=== PATIENT | male | born 1950 | race Caucasian/White ===

== ENCOUNTER 2023-07-08 18:03 | Emergency (ER) | payer MEDICARE, SELFPAY ==
[2023-07-08 18:04] VITALS: BP 139/71; PULSE 62; RESP 18; TEMP 37.1; O2SAT 97; BMI 31.9
--- NOTE | 2023-07-08 18:06 | CTR_ITS ---
PROCEDURE INFORMATION: Exam: CT Head Without Contrast Exam date and time: 07/08/2023 7:17 PM Age: 72 years old Clinical indication: Weakness, extremity and weakness, facial; Right; Prior surgery; Surgery date: 6+ months; Surgery type: Craniotomy; Patient HX: C/O RT upper ext parasthesia and RT facial droop. History of RT sided hemorrhagic stroke. ; Additional info: R sided parasthesia, weakness, TIA, HX of left bleed TECHNIQUE: Imaging protocol: Computed tomography of the head without contrast. Radiation optimization: All CT scans at this facility use at least one of these dose optimization techniques: automated exposure control; mA and/or kV adjustment per patient size (includes targeted exams where dose is matched to clinical indication); or iterative reconstruction. REPORTING DATA: Count of CT and Cardiac NM exams in prior 12 months: This patient has received 0 known CTs and 0 known cardiac nuclear medicine studies in the 12 months prior to the current study. COMPARISON: No relevant prior studies available. RADIATION DOSE METRICS: Total DLP (mGy-cm): 1028.58 FINDINGS: Brain: No acute intracranial abnormality. Cerebral ventricles: No ventriculomegaly. Paranasal sinuses: Visualized sinuses are unremarkable. No fluid levels. Mastoid air cells: Visualized mastoid air cells are well aerated. Bones/joints: Left frontal craniotomy. Soft tissues: Unremarkable. CT/CT head wo con* [id number] IMPRESSION: 1. No acute intracranial abnormality. 2. Left frontal craniotomy.
--- NOTE | 2023-07-08 18:06 | XRR_ITS ---
PROCEDURE INFORMATION: Exam: XR Chest Exam date and time: 07/08/2023 7:04 PM Age: 72 years old Clinical indication: Other: Possible stroke; Additional info: Weakness, TIA TECHNIQUE: Imaging protocol: Radiologic exam of the chest. Views: 1 view. COMPARISON: No relevant prior studies available. FINDINGS: Lungs: Unremarkable. No consolidation. Pleural spaces: Unremarkable. No pleural effusion. No pneumothorax. Heart/Mediastinum: Unremarkable. No cardiomegaly. Bones/joints: Unremarkable. XR/XR chest 1V portable [id number] IMPRESSION: No acute findings.
[2023-07-08 18:10] VITALS: BP 139/71; PULSE 62; RESP 18; O2SAT 97
--- NOTE | 2023-07-08 18:14 | ECG_ITS ---
[facility] Test Date: 2023-07-08 Pat Name: Farshad Parra Department: Room: Gender: Male Scientific Recruiter: : [id number] Requested By: Jean Claude Simmons Order Number: [id number] Lucita MD: Kortney Pulliam M.D. Measurements Intervals [place] Rate: 56 P: 54 AK: 190 QRS: 52 QRSD: 96 T: 28 QT: 416 QTc: 405 Interpretive Statements SINUS BRADYCARDIA No previous ECG available for comparison Electronically Signed On 07-08-2023 21:17:46 POULTRY SCIENTIST by Kortney Pulliam M.D. [id number]
--- NOTE | 2023-07-08 18:22 | ED_ITS ---
HPI - Neuro Symptoms/Deficit 2 General: Chief Complaint: Neuro Symptoms/Deficit Stated Complaint: Stroke like Time Seen by Provider: 07/08/23 18:06 History of Present Illness: Patient presents to the ER with complaints of numbness and tingling of his right lip which lasted 3 to 5 seconds and a strange feeling in his right arm that involved him not being able to move it which lasted 3 to 5 minutes. He is all started and stopped approximately 2 hours ago. Patient does have a history of a hemorrhagic stroke on his left side. During his last stroke his symptoms were on his right side. Patient had brain surgery to remove the bleed in approximately April in [place]. Patient is all currently back to normal with no complaints at this time. Patient is not currently on any type of anticoagulation. Review of Systems 2 General: Reports: 10 or more systems reviewed and unremarkable except in HPI and below Physical Exam 2 Const: COMMON NORMALS: no acute distress, average body habitus, patient oriented x3, no limitations, healthy appearing, alert and well nourished HENMT: COMMON NORMALS: normocephalic, atraumatic, hearing grossly normal bilaterally, external ears normal, Normal external nose present, moist oral mucous membranes and oropharynx normal HEAD & SCALP: normocephalic and atraumatic NOSE: Normal external nose present EXTERNAL EAR: Yes external ears normal Eye: COMMON NORMALS: Equal, round and reactive pupils present, EOMs intact bilaterally, conjunctivae normal and no scleral icterus CONJUNCTIVA: Yes conjunctivae normal PUPIL: Yes Equal, round and reactive pupils present Neck/C-Spine: COMMON NORMALS: full ROM, no lymphadenopathy, supple, no meningeal signs, no JVD and Thyroid normal THYROID: Thyroid normal Chest: COMMONS NORMALS: normal inspection of the chest and normal palpation of entire chest wall Resp: COMMON NORMALS: normal respiratory effort, No retractions and No use of accessory muscles Cardio: COMMON NORMALS: no JVD, regular rate, regular rhythm, S1 normal heart sound present, S2 normal heart sound present, No gallops present (Cardio), No clicks present (Cardio), No murmurs present (Cardio) and No rub (Cardio) R ATE: regular rate RHYTHM: regular rhythm HEART SOUNDS: S1 normal heart sound present and S2 normal heart sound present GI: COMMON NORMALS: Normal to inspection, nondistended, normoactive bowel sounds present, Soft to palpation, non-tender, No hepatosplenomegaly present and no masses PALPATION: Yes Soft to palpation and Yes No hepatosplenomegaly present Neuro: COMMON NORMALS: patient oriented x3 SENSORIUM/ORIENTATION: Yes alert MENINGEAL SIGNS: Yes no meningeal signs OTHER: No focal localizing neurologic deficit noted. Strength symmetric in all extremities equal bilateral. Course 2 Vital Signs: Vital signs: Vital Signs Temperature 98.7 F 07/08/23 18:04 Pulse Rate 83 07/08/23 20:51 Respiratory Rate 18 07/08/23 18:10 Blood Pressure 124/81 07/08/23 20:51 Pulse Oximetry 96 07/08/23 20:51 Oxygen Delivery Me thod Room Air 07/08/23 18:10 MDM - Neuro Symptoms/Deficit Medical Decision Making Patient presented to the ER with TIA-like symptoms that had totally resolved by time he arrived to the ER. Patient was worked up with strokelike fashion with standard labs chest x-ray EKG and head CT. All of which were essentially benign. These findings was discussed with the patient and his family and how we cannot place him on anticoagulation because of his previous hemorrhagic stroke. It was instructed that the patient to follow-up with his neurologist for further evaluation and treatment. Differential Diagnosis Likely transient cerebral ischemia; Unlikely carpal tunnel syndrome, convulsions, delirium, subarachnoid hemorrhage, peripheral neuropathy, cerebrovascular accident or multiple sclerosis Medical Records I reviewed the patient's medical records. Lab Data I reviewed the patient's lab results. 07/08/23 18:20 07/08/23 18:20 Radiology Impressions Chest X-Ray 07/08/23 18:06 IMPRESSION: No acute findings. Head CT 07/08/23 18:06 IMPRESSION: 1. No acute intracranial abnormality. 2. Left frontal craniotomy. Laboratory Results WBC 4.78 10^3/uL (3.29-11.43) 07/08/23 18:20 RBC 4.03 10^6/uL (3.85-5.65) 07/08/23 18:20 Hgb 12.30 g/dL (11.27-16.99) 07/08/23 18:20 Hct 38.2 % (37-53) 07/08/23 18:20 MCV 94.8 fl (82-101) 07/08/23 18:20 MCH 30.5 pg (27-33) 07/08/23 18:20 MCHC 32.2 g/dL (30-55) 07/08/23 18:20 RDW 13.2 % (12.1-15.1) 07/08/23 18:20 Plt Count 210 10^3/cmm (157-399) 07/08/23 18:20 MPV 9.6 fL (7.4-10.4) 07/08/23 18:20 Neut % (Auto) 44.1 % 07/08/23 18:20 Lymph % (Auto) 40.6 % 07/08/23 18:20 [place] % (Auto) 12.8 % 07/08/23 18:20 Eos % (Auto) 1.9 % 07/08/23 18:20 Baso % (Auto) 0.4 % 07/08/23 18:20 Neut # (Auto) 2.11 10^3/uL (1.8-7.7) 07/08/23 18:20 Lymph # (Auto) 1.9 10^3/uL (0.8-4.8) 07/08/23 18:20 [place] # (Auto) 0.6 10^3/uL (0.2-0.9) 07/08/23 18:20 Eos # (Auto) 0.1 10^3/uL (0.0-0.8) 07/08/23 18:20 Baso # (Auto) 0.0 10^3/uL (0.0-0.1) 07/08/23 18:20 Nucleated RBC % (auto) 0 % 07/08/23 18:20 Nucleated RBCs # 0.0 /100WBC 07/08/23 18:20 PT 13.80 SECONDS (12.1-14.9) 07/08/23 18:20 INR 1.03 (0.8-1.2) 07/08/23 18:20 Sodium 140 mmol/L (136-145) 07/08/23 18:20 Potassium 3.8 mmol/L (3.5-5.1) 07/08/23 18:20 Chloride 105 mmol/L (98-107) 07/08/23 18:20 Carbon Dioxide 26 mmol/L (22-29) 07/08/23 18:20 Anion Gap 12.8 (5-19) 07/08/23 18:20 BUN 15 mg/dL (8-23) 07/08/23 18:20 Creatinine 0.9 mg/dL (0.7-1.2) 07/08/23 18:20 GFR Calculation Not Reportable 07/08/23 18:20 Glucose 106 mg/dL (65-115) 07/08/23 18:20 Calculated Osmolality 291 mOsm/kg (285-295) 07/08/23 18:20 Calcium 8.8 mg/dL (8.5-10.5) 07/08/23 18:20 Magnesium 1.9 mg/dL (1.7-2.3) 07/08/23 18:20 Total Bilirubin 1.0 mg/dL (0.15-1.2) 07/08/23 18:20 AST 15 U/L (0-40) 07/08/23 18:20 ALT 15 U/L (0-41) 07/08/23 18:20 Alkaline Phosphatase 69 U/L (40-130) 07/08/23 18:20 C-Reactive Protein 3.0 mg/L (0.0-4.9) 07/08/23 18:20 Total Protein 6.1 g/dL (6.6-8.7) L 07/08/23 18:20 Albumin 4.0 g/dL (3.5-5.2) 07/08/23 18:20 Globulin 2.1 g/dL (1.3-4.6) 07/08/23 18:20 TSH 1.15 uIU/mL (0.27-4.20) 07/08/23 18:20 All radiology interpretation(s) finalized by discharge EKG Data EKG 1: I personally reviewed and interpreted this EKG as follows: EKG interpretation date: 07/08/23 EKG interpretation time: 18:14 Prior EKG tracings: not available for review Interpretation: EKG shows ventricular rate 56 bpm, IN interval 190, QRS duration 96, QTc of 409, sinus bradycardia, no ST-T wave changes Discharge Plan Discharge Patient Disposition: Home Clinical Impression: Brain TIA Condition: Stable Discharge Orders: Discharge ED (Routine); Ordered 07/08/23 Ordered By: Jean Claude Simmons Referrals: Mariposa Parra NP [Primary Care Provider] - 1 week Patient Instructions: TIA Activity Restrictions/Additional Instructions: Please continue all your current medications as prescribed. Please follow-up with your neurologist for further evaluation and treatment of your recurrent TIAs. Please follow-up with your family practitioner in the next 7 to 10 days for further evaluation and treatment also. If your symptoms return please return to the ER. Coding Level of Care Code ED Physician/Ophthalmologist for Ronni Gonsalez
[2023-07-08 18:25] LABS: Basophils % 0.4 %; Eosinophils # 0.1 10^3/uL (0.0-0.8); Eosinophils % 1.9 %; Hematocrit 38.2 % (37-53); Lymphocytes # 1.9 10^3/uL (0.8-4.8); Lymphocytes % 40.6 %; Mean Corpuscular HGB Conc 32.2 g/dL (30-55); Mean Corpuscular Hemoglobin 30.5 pg (27-33); Mean Corpuscular Volume 94.8 fl (82-101); Mean Platelet Volume 9.6 fL (7.4-10.4); Monocytes # 0.6 10^3/uL (0.2-0.9); Monocytes % 12.8 %; Neutrophils # 2.11 10^3/uL (1.8-7.7); Neutrophils % 44.1 %; Nucleated Red Blood Cells % 0 %; Platelet Count 210 10^3/cmm (157-399); Red Blood Count 4.03 10^6/uL (3.85-5.65); Red Cell Distribution Width 13.2 % (12.1-15.1); White Blood Count 4.78 10^3/uL (3.29-11.43)
[2023-07-08 18:45] LABS: INR 1.03 (0.8-1.2)
[2023-07-08 19:35] LABS: Alanine Aminotransferase 15 U/L (0-41); Alkaline Phosphatase 69 U/L (40-130); Anion Gap 12.8 (5-19); Aspartate Amino Transferase 15 U/L (0-40); Blood Urea Nitrogen 15 mg/dL (8-23); Calcium 8.8 mg/dL (8.5-10.5); Carbon Dioxide 26 mmol/L (22-29); Chloride 105 mmol/L (98-107); Globulin 2.1 g/dL (1.3-4.6); Glucose 106 mg/dL (65-115); Magnesium 1.9 mg/dL (1.7-2.3); Osmolality Calculated 291 mOsm/kg (285-295); Potassium 3.8 mmol/L (3.5-5.1); Sodium 140 mmol/L (136-145); Total Protein 6.1 g/dL (6.6-8.7)
[2023-07-08 19:42] LABS: Thyroid Stimulating Hormone 1.15 uIU/mL (0.27-4.20)
[2023-07-08 20:51] VITALS: BP 124/81; PULSE 83; O2SAT 96
== END 2023-07-08 20:56 | disposition home or self-care (01) ==
PROVIDERS: Emergency Provider Emergency Medicine; PCP Nurse Practitioner Family
DX: G45.9 Transient cerebral ischemic attack, unspecified (principal)
CPT/HCPCS: 36415; 70450; 71045; 80053; 83735; 84443; 85025; 85610; 86140; 93005; 99285

== ENCOUNTER 2025-07-19 13:44 | Observation (INO) | payer MEDICARE, SELFPAY ==
[2025-07-19] VITALS (10 sets, daily range): BP systolic 152–185; BP diastolic 67–94; PULSE 65–83; RESP 16–22; TEMP 36.5–36.8; O2SAT 92–98
--- OUTSIDE RECORDS SUMMARY | 2025-07-19 13:47 | XMS_ITS | Clinical Summary ---
Author Organization [facility] Address [address] [place] [address] Care Team Providers Care Dietetic Assistant Name Role Phone Mercedes Solis MD Primary Care Provider Allergies Active Allergy Reactions Criticality Noted Date Comments Penicillins Anaphylaxis High 02/07/2010 Medications cyanocobalamin (VITAMIN B-12) 500 mcg tablet Take 500 mcg by mouth daily. Active nitroglycerin (NITROSTAT) 0.4 mg Tablet, Sublingual Place 1 Tablet (0.4 mg) under tongue every 5 minutes as needed for Chest Pain (do not exceed 3 doses,notify physician if chest pain not relieved, hold if systolic BP less than or equal to 90 mmHg). 25 Tablet 3 8 Active promethazine-dext romethorphan (PHENERGAN-DM) 6.25-15 mg/5 mL syrup Take 5 mL by mouth every 6 hours as needed for Cough. 120 mL 1 0 Active baclofen (LIORESAL) 10 mg tablet Take 1 Tablet (10 mg) by mouth 3 times daily as needed for Pain (neck). 30 Tablet 0 Active ascorbic acid, vitamin C, (VITAMIN C) 1,000 mg Tablet Take 1,000 mg by mouth daily. Active aspirin (ECOTRIN EC) 81 mg Tablet, Delayed Release (E.C.)Indications :History of right coronary artery stent placement Take 1 Tablet (81 mg) by mouth daily. 90 Tablet 3 0 Active fluticasone propionate (FLONASE) 50 mcg/spray [place], Suspension nasal inhaler Administer 2 Sprays in each nostril daily. 16 Gram 3 1 Active atorvastatin (LIPITOR) 80 mg tabletIndications :Atherosclerosis of [place] coronary artery of [place] heart without angina pectoris Take 1 Tablet (80 mg) by mouth daily at bedtime. 90 Tablet 1 Active carvediloL (COREG) 6.25 mg tabletIndications :Atherosclerosis of [place] coronary artery of [place] heart without angina pectoris TAKE 1 TABLET EVERY 12 HOURS 180 Tablet 1 1 Active lisinopriL (PRINIVIL) 5 mg tabletIndications :Benign hypertension TAKE 1 TABLET DAILY 30 Tablet 1 Active omeprazole (PriLOSEC) 40 mg Capsule, Delayed Release(E.C.)Renetta cations:Gastroeso phageal reflux disease TAKE 1 CAPSULE DAILY 30 Capsule 1 Active Active Problems Problem Noted Date Diagnosed Date Benign hypertension 03/15/2018 Mixed hyperlipidemia 03/17/2016 Atherosclerosis of [place] co ronary artery of [place] heart without angina pectoris 12/04/2015 History of right coronary artery stent placement 12/04/2015 Overview (12/04/2015): overlapping KRISTINE to RCA 11/11/15 Dizziness 11/08/2015 Fatigue 11/08/2015 UNGER (dyspnea on exertion) 11/08/2015 Sweating 11/08/2015 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 Personal history of colonic polyps 09/04/2010 Family history of colon cancer 09/04/2010 Immunizations Immunization Administration Dates Next Due (PNEUMOVAX 23)(50 YRS UP) PN EUMOCOCCAL POLYSACCHARIDE (PPV23) 0.5 ML, IM 10/27/2017 (TDVAX)(7 YRS UP) TETANUS AN D DIPHTHERIA TOXOIDS, ADSORBED (2 LF OF TETANUS TOXOID AND 2 LF OF DIPHTHERIA TOXOID), 0.5ML (PF), IM 12/11/2005 PREVNAR (PCV13) pneumococcal 13-valent conjugate Vaccine 03/17/2016 Skin Test TB 10/18/2019 Zoster Vaccine Live SQ 03/17/2016 Family History Medical History Relation Name Comments Colon Cancer Father Cancer Maternal Uncle Lung Cancer Paternal Uncle Relation Name Status Comments Father Maternal Uncle Paternal Uncle Social History Tobacco Use Types Packs/Day Years Used Date Smoking Tobacco: Former Cigarettes 0 Q uit: 07/26/1994 Smokeless Tobacco: Never Tobacco Cessation:Counseling Given: No Alcohol Use Standard Drinks/Week Comments No 0 (1 standard drink = 0.6 oz pur e alcohol) Sex and Gender Information Value Date Recorded Sex Assigned at Not on file 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 Gender Identity Not on file Sexual Orientation Not on file Last Filed Vital Signs Vital Sign Reading Time Taken Comments Blood Pressure 140/80 08/29/2020 9:36 AM DATA QUALITY CONSULTANT Pulse 65 08/29/2020 9:27 AM DATA QUALITY CONSULTANT Temperature 36.5 C (97.7 F) 08/29/2020 9:27 AM DATA QUALITY CONSULTANT Respiratory Rate 16 08/29/2020 9:27 AM DATA QUALITY CONSULTANT Oxygen Saturation 94% 08/29/2020 9:27 AM DATA QUALITY CONSULTANT Inhaled Oxygen Concentration - - Weight 99.5 kg (219 lb 6.4 oz) 08/29/2020 9:27 A M DATA QUALITY CONSULTANT Height 172.7 cm (5' 8 ) 08/29/2020 9:27 AM DATA QUALITY CONSULTANT Body Mass Index 33.36 08/29/2020 9:27 AM DATA QUALITY CONSULTANT Plan of Treatment Health Maintenance Due Date Last Done Comments COLORECTAL SCREENING 1968 Traditional Medicare (ACO) A nnual Wellness Visit 1969 DTAP/TDAP/TD VACCINES (1 - Tdap) 12/12/2005 12/12/19 06 ZOSTER VACCINE (2 of 3) 05/12/2016 03/17/2016 RSV VACCINE (60+ or ) (1 - 1-dose 75+ series) 2023 INFLUENZA VACCINE (#1) 2025 08/29/2020, 2019 PNEUMOCOCCAL VACCINE 50+ YEARS Completed 10/27/2017 , 03/17/2016 Medical Devices Implanted Type Area Bowling Teacher Device Identifier Shelf Expiration Date Model / Serial / Lot Xience 3.5x38-11/11/2015 Implanted:2015 (Quantity not on file) Stent Xience 3.5x8-11/11/2015 Implanted:2015 (Quantity not on file) Stent Xience 3.5x12-11/11/2015 Implanted:2015 (Quantity not on file) Stent Insurance MEDICARE PART A AND B [employer] Advance Directives For more information, please contact: [phone] * Full Code (Latest Code Status on File) Date Activated Date Inactivated Comments 11/11/2015 11:03 AM 11/11/2015 10:24 PM * Full Code Date Activated Date Inactivated Comments 11/08/2015 8:50 PM 11/11/2015 11:03 AM Care Teams Dietetic Assistant Relationship Specialty Start Date End Date Mercedes Solis MD [address] [phone] PCP - General Family Practice 06/08/16
--- OUTSIDE RECORDS SUMMARY | 2025-07-19 13:47 | XMS_ITS | Encounter Summary ---
Author Organization [facility] Address [address] [place] [address] Care Team Providers Care Developer Advisor Name Role Phone Mercedes Solis MD Primary Care Provider [phone] Encounter Details Date Type Department Care Team (Latest Contact Info) Description 06/28/2006 Outpatient Historical [facility] Medicine- [address] [phone] Nagi Rajan, [place] NO ADDRESS ON FILE Acute Bronchitis (Primary Dx); Allergic Rhinitis, Cause Unspecified Social History Tobacco Use Types Packs/Day Years Used Date Smoking Tobacco: Never Assessed Sex and Gender Information Value Date Recorded Sex Assigned at Not on file 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
--- OUTSIDE RECORDS SUMMARY | 2025-07-19 13:47 | XMS_ITS | Continuity of Care Document ---
Author Organization [facility] Address [address] [place] [address] Assessment Encounter Date Assessment Date Assessment LastModified by Organization Details LastModified Time 07/17/2025 07/17/2025 J02.9: Acute pharyngitis, unspecified Z88.0: Allergy status to penicillin 1. Acute pharyngitis J02.9: Acute pharyngitis, unspecified Patient presents with acute sore throat symptoms that have not responded adequately to azithromycin. Due to penicillin allergy, alternative antibiotic therapy is indicated. - Clindamycin prescribed given penicillin allergy - Steroid injection administered to reduce inflammation and dry secretions - Patient counseled regarding potential diarrhea as side effect of clindamycin and advised to contact office if this occurs 2. Penicillin allergy Z88.0: Allergy status to penicillin Documented penicillin allergy affects antibiotic selection for current infection. - Avoided ceftriaxone due to potential cross-reactivit y - Selected clindamycin as appropriate alternative antibiotic [id number] Not available 07/17/2025 11:53:22 Plan of Treatment Reminders Order Date Submit Date Provider Last Modified By Organization Details Last Modified Time Details Appointments None recorded. Lab influenza virus A + B + SARS-CoV-2 (COVID19) Ag panel, rapid IA, upper respiratory specimen 2024 025 [facility] [address] [place], [address], 5 12:04:46 rapid strep group A, throat 2024 025 [facility] [address] [place], [address], 11:42:27 Referral None recorded. Procedures None recorded. Surgeries None recorded. Imaging None recorded. Medication Orders clindamycin HCl 300 mg capsule 2024 [place], [address] [place], [address], 12:20:17 Depo-Medrol 40 mg/mL suspension for injection [address] [facility] [address] [facility], [facility] [place], [address], 11:58:57 dexamethaso ne sodium phosphate 4 mg/mL injection solution [address], [facility] [place], [address], 11:59:50 Patient TargetsNo targets recorded. Patient InstructionsNo instructions recorded. Reason for Referral None Reported. Results Created Date Observation Date Name Description Value Unit Range Abnormal Flag Note LastModifiedBy Organization Detail LastModifiedTime 07/17/2007/17/2025 influ nickie virus A + B + SARS- CoV-2 (COVI D19) Ag panel , rapid IA, upper respi rator y speci men flu A N Not Available [facility] [address] [place], [address], 07/17/2025 11:35:52 07/17/20 25 07/17/2025 influ nickie virus A + B + SARS- CoV-2 (COVI D19) Ag panel , rapid IA, upper respi rator y speci men flu B N Not Available [facility] [address] [place], [address], 07/17/2025 11:35:52 07/17/20 25 07/17/2025 influ nickie virus A + B + SARS- CoV-2 (COVI D19) Ag panel , rapid IA, upper respi rator y speci men covid N Not Available [facility] [address] [place], [address], 07/17/2025 11:35:52 07/17/20 25 07/17/2025 rapid strep group A, throa t Strep positi ve Not Available [facility] [address] [place], [address], 07/17/2025 11:35:59 Result Notes None recorded. Problems Name Problem SNOMED Code Status Onset Date Resolution Date Notes Provider Name and Address Organization Details Recorded Time Coronary arterioscle rosis 77505155 Active 2022 Mariposa Parra NP [address], [address], [facility] 3 14:58:33 Hypertensiv e disorder 79956603 Active 2022 Mariposa Parra NP [address], [address], [facility] 3 14:58:48 Chronic obstructive pulmonary disease 97393229 Active 2022 Mariposa Parra NP [address], [address], [facility] 3 15:00:21 Vitamin D deficiency 40435738 Active 2022 [facility] 3 12:53:19 Focal onset aware epileptic seizure 2752284029224 00 Active 2024 Mariposa Parra NP [address], [address], [facility] 5 15:16:53 History of atrial fibrillatio n 889830025 Active 2024 Mariposa Parra NP [address], [address], [facility] 5 15:17:26 Mixed hyperlipide linda 255556814 Active 2024 Mariposa Parra, WAREHOUSEMAN [address], [address], [facility] 5 15:17:51 Problem Notes None recorded. Procedures Surgical History Date Name Laterality Status Provider Name and Address Organization Details Recorded Time insertion of arterial stent completed Cheryl [facility] 06/01/2023 12:20:55 procedure on brain completed Cheryl [facility] 06/01/2023 12:21:34 Imaging Results None recorded. Procedure Notes None recorded. Medical Equipment None Reported. Allergies Allergen ID Allergen Name Allergen Category Reaction Reaction Severity Criticality Documentation Date Start Date Code Code System Note Provider Name and Address Organization Details Recorded Time 82539 Product containin g penicilli n (product) medicatio n Not available Not available Not available 11/12/2022 08869 8001 SNOMED Libertad Banks [facility] 3 14:17:43 Medications Name Sig Start Date Stop Date Status Note LastModified by Organization Details LastModified Time atorvastati n 40 mg tablet TAKE 1 TABLET DAILY AT BEDTIME 2024 active Not Available Not Available Not Avai lable atorvastati n 80 mg tablet TAKE 1 TABLET DAILY active Not Available Not Available No t Available ascorbic acid (vitamin C) 1,000 mg tablet Take 1000 mg every day by oral route in the morning. active Not Available Not Available No t Available acetaminoph en 325 mg tablet Take 2 tablets as needed by oral route. active Not Available Not Available No t Available carvedilol 6.25 mg tablet Take 1 tablet twice a day by oral route for 90 days. 2024 active Not Available Not Available Not Avai lable doxycycline hyclate 100 mg capsule Take 1 capsule twice a day by oral route for 14 days. 11/03 completed Not Available Not Available Not Available carvedilol 12.5 mg tablet TAKE 1 TABLET EVERY 12 HOURS. active Not Available Not Available No t Available Depo-Medrol 40 mg/mL suspension for injection Take 40 mg by injection route. 2024 active Not Available Not Available Not Avai lable clindamycin HCl 300 mg capsule Take 1 capsule 3 times a day by oral route for 10 days. 2024 active Not Available Not Available Not Avai lable Vitamin C 500 mg tablet Take 1 tablet every day by oral route. 06/01 completed Not Available Not Available Not Available Claritin 10 mg tablet Take 1 tablet every day by oral route. 2024 active Not Available Not Available Not Avai lable lisinopril 20 mg tablet Take 1 tablet every day by oral route. 2024 active Not Available Not Available Not Avai lable prednisone 20 mg tablet Take 1 tablet every day by oral route for 5 days. 02/22 completed Not Available Not Available Not Available clopidogrel 75 mg tablet Take 1 tablet every day by oral route. 05/31 completed Not Available Not Available Not Available amlodipine 5 mg tablet TAKE 1 TABLET EVERY MORNING 2024 active Not Available Not Available Not Avai lable omeprazole 40 mg capsule,del ayed release Take 1 capsule(s ) every day by oral route. 2024 active Not Available Not Available Not Avai lable Depo-Medrol 80 mg/mL suspension for injection Take 80 mg by injection route. 03/08 completed Not Available Not Available Not Available tamsulosin 0.4 mg capsule TAKE 1 CAPSULE DAILY 2024 active Not Available Not Available Not Avai lable linezolid 600 mg tablet Take 1 tablet every 12 hours by oral route. 06/01 completed Not Available Not Available Not Available Cipro 500 mg tablet Take 1 tablet every 12 hours by oral route for 7 days. 08/17 completed Not Available Not Available Not Available lisinopril 10 mg tablet TAKE 1 TABLET DAILY. active Not Available Not Available No t Available nitroglycer in 0.[address] 1 TABLET (0.4 MG) BY SUBLINGUA L ROUTE AT 1ST SIGN OF ATTACK; MAY REPEAT EVERY 5 MINUTES UP TO 3 TABS; IF NO RELIEF SEEK MEDICAL HELP active Not Available Not Available No t Available mometasone 50 mcg/actuati on nasal spray Axtell 2 sprays every day by intranasa l route. 2024 active Not Available Not Available Not Avai lable lisinopril 5 mg tablet Take 1 tablet every day by oral route. 05/31 completed Not Available Not Available Not Available dexamethaso ne sodium phosphate 4 mg/mL injection solution Inject 4 mg by intramusc ular route. 2024 active Not Available Not Available Not Avai lable levofloxaci n 500 mg tablet Take 1 tablet every 24 hours by oral route for 10 days. 02/22 completed Not Available Not Available Not Available Benadryl 25 mg capsule Take 2 capsules by oral route. 2024 active Not Available Not Available Not Avai lable Adult Low Dose Aspirin 81 mg tablet,mynor yed release Take 1 tablet every day by oral route in the morning. 06/01 completed HOLD Not Available Not Available Not Available Saccharomyc es boulardii 250 mg capsule Take 2 capsules twice a day by oral route for 7 days. 11/03 completed Not Available Not Available Not Available calcium 250 mg (as carbonate)- vitamin D3 3.125 mcg (125 unit) tablet Take 1 tablet every day by oral route. 06/01 completed Not Available Not Available Not Available levetiracet am 1,000 mg tablet Take 1 tablet twice a day by oral route for 30 days. 2023 active Not Available Not Available Not Avai lable lacosamide 150 mg tablet Take 1 tablet twice a day by oral route. 11/03 completed Not Available Not Available Not Available B12 Take 500 mcg daily 08/17 completed Not Available Not Available Not Available EpiPen 2-Ovidio 0.3 mg/0.3 mL injection, auto-inject or as directed 2024 active Not Available Not Available Not Avai lable Flonase Allergy Relief 50 mcg/actuati on nasal spray,suspe nsion 2 sprays each nostril morning and evening. 03/12 completed Not Available Not Available Not Available Stiolto Respimat 2.5 mcg-2.5 mcg/actuati on solution for inhalation Inhale 2 puffs every day by inhalatio n route. 08/03 completed Not Available Not Available Not Available Vitals Date Recorded Body height Body mass index (BMI) Body weight Body temperature Heart rate Oxygen saturation Respiratory rate Systolic And Diastolic Provider Name and Address Organization Details Last Updated DateTime 5 165.1 cm 37.6 kg/m2 484854. 28 g 98.6 [degF] 96 /min 97 % 18 /min 142/80 mm[Hg] Catherine Gar [facility] 5 11:35:09 Social History Question Answer Notes LastModified by Organizat ion Details LastModified Time Tobacco Smoking Status Former Smoker Libertad Banks [facility] 11/12/2022 14:20:42 Do You Have An Advance Directive? No Information n ot available 11/12/2022 Do You Wear A Helmet When Biking? No Information not available 11/12/2022 Are You Blind Or Do You Have Difficulty Seeing? No Information n ot available 11/12/2022 Is Blood Transfusion Acceptable In An Emergency? Yes Information not available 11/12/2022 What Is Your Level Of Caffeine Consumption? Moderate Information not available 11/12/2022 In The 14 Days Before Symptom Onset, Have You Had Close Contact With A Laboratory-confirm ed COVID-19 While That Case Was Ill? No Information n ot available 11/12/2022 In The 14 Days Before Symptom Onset, Have You Had Close Contact With A Person Who Is Under Investigation For COVID-19 While That Person Was Ill? No Information not available 11/12/2022 Have You Been To An Area Known To Be High Risk For COVID-19? No Information not available 11/12/2022 Are You Deaf Or Do You Have Serious Difficulty Hearing? Yes Information not available 11/12/2022 What Type Of Diet Are You Following? REGULAR Information n ot available 11/12/2022 Have You Processed Blood Or Body Fluids From An Ebola Virus Disease Patient Without Appropriate PPE? No Information not available 11/12/2022 What Is The Highest Grade Or Level Of School You Have Completed Or The Highest Degree You Have Received? [id number] Information not available 11/12/2022 Have You Ever Been Tested For Hepatitis C No Information not available 06/01/2023 Have You Had A Blood Transfusion Before 1991? No Information not available 06/01/2023 Have You Had Laser Engraver Dialysis? No Information not available 11/12/2022 Have You Ever Used Injectable Drugs, Even Once? No Information not available 11/12/2022 Do You Have Tattoos Or Body Piercings? No Information not available 11/12/2022 Have You Had Close Contact With An Individual With Hepatitis C? No Information not available 06/01/2023 Have You Ever Had Sex For Drugs Or Money? No Information not available 11/12/2022 Have You Ever Had Unprotected Sex? Yes Information not available 06/01/2023 Have You Been Incarcerated For Longer Than 6 Months? No Information not available 11/12/2022 Have You Tested Positive For HIV? No Information no t available 11/12/2022 Do You Have A History Of Fist Fighting Or Combat Experience? No Information not available 11/12/2022 What Number (0-10) Best Describes How, During The Past Week, Has Interfered With Your General Activity? 0 Information not available 11/12/2022 What Number (0-10) Best Describes How, During The Past Week, Pain Has Interfered With Your Enjoyment In The Past Week 0 Information not available 11/12/2022 What Number (0-10) Best Describes Your Pain On Average In The Past Week 0 Information not available 11/12/2022 Total PEG Score 0 Informati on not available 11/12/2022 What Was The Date Of Your Most Recent Tobacco Screening? 07/17/2025 [email or web address] Information not available 07/17/2025 How Many Children Do You Have? 2 Information not available 11/12/2022 Do You Use Protection During Sex? No Information not available 11/12/2022 What Is Your Relationship Status? Information not available 11/12/2022 Do You Use Your Seat Belt Or Car Seat Routinely? No Information not available 11/12/2022 Are You Sexually Active? Yes Information not available 11/12/2022 Do You Have Difficulty Walking Or Climbing Stairs? No Information not available 11/12/2022 Sex: Male Functional Status Question Answer Note LastModified by Organizat ion Details LastModified Time Do you use any illicit or recreational drugs? No Information not available 11/12/2022 Do you or have you ever used any other forms of tobacco or nicotine? No Information not available 11/12/2022 What is your level of alcohol consumption? None Information not available 11/12/2022 Are you currently employed? No Information not available 11/12/2022 Do you have transportation difficulties? No Information not available 11/12/2022 Are you able to walk independently without assistance or assistive devices? YESWOREST Information not available 11/12/2022 Do you have difficulty doing errands alone? No Information not available 11/12/2022 Are you able to care for yourself independently? Yes Information not available 11/12/2022 Do you have difficulty dressing, bathing, grooming, or toileting? No Information not available 11/12/2022 Mental Status Question Answer Note LastModified by Organizat ion Details LastModified Time Do you feel stressed (tense, restless, nervous, or anxious, or unable to sleep at night)? GN0890-4 Information not available 11/12/2022 Do you have difficulty concentrating, remembering or making decisions? Yes Information no t available 11/12/2022 Family History Nothing Reported Notes:Father had unspec [facility] er Medical History No medical history recorded. Immunizations Vaccine Type Date Status Note Provider Nam e and Address Organization Details Recorded Time pneumococcal polysaccharide PPV23 8 completed MALU Diaz - [facility] 11/12/2022 14:17:29 Pneumococcal conjugate PCV 13 6 completed Libertad Banks [facility] 11/12/2022 14:17:29 zoster live 6 completed Libertad Banks [facility] 11/12/2022 14:17:29 Tdap 3 completed Mariposa Parra, WAREHOUSEMAN [address], [address], [facility] 02/22/2023 15:41:50 Past Encounters Encounter ID Performer Location Encounter Start Date Encounter Closed Date Diagnosis/Indication Diagnosis SNOMED-CT Code Diagnosis ICD10 Code Diagnosis IMO Codes Diagnosis Note [id number] RADHA CLEARY DO [facility] [address] [place] [address] 07/17/2025 11:24:44 07/17/2025 16:16:37 Acute cough 0667415418 66438860 R05.3 0251066299 Streptococ travis sore throat 38527013 J02.0 7212458 Health Concerns Section Related Observation LastModified by Organization Detai ls LastModified Time None Recorded Concern Status LastModified by Organization Details LastModified Time None Recorded Payers Encounter Date Sequence Insurance Name Policy Number Policy Sullivan Covered Member ID Sullivan Member ID Guarantor Name 07/17/2025 1 [employer] (MEDICARE REPLACEMENT /ADVANTAGE - PPO) [id number] Farshad Parra [id number] Farshad Parra 07/17/2025 2 [employer] (POS II) [id number] Farshad Parra [id number] Farshad Parra Notes Date Note Type Note Provider Name and Address Organization Details Recorded Time 07/17/2025 text/html CHIEF COMPLAINT: Chief Complaint Patient presents with sore throat. HPI Patient is a 74-year-old male who presents for follow up regarding sore throat. Throat became sore yesterday morning but improved with rest. Symptoms recurred last night. Patient denies fever. Previously prescribed azithromycin has not been controlling the infection adequately. 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
--- OUTSIDE RECORDS SUMMARY | 2025-07-19 13:47 | XMS_ITS | Encounter Summary ---
Author Organization [facility] Address [address] [place] [address] Care Team Providers Care Inner Tube Tuber Machine Operator Name Role Phone Mercedes Solis MD Primary Care Provider Encounter Details Date Type Department Care Team (Latest Contact Info) Description 03/07/2007 Outpatient Historical [facility] General Surgery [address] [address] [address] [place] [phone] Jose Mayorga DO NO ADDRESS ON FILE Other Specified Pre-Operative Examination (Primary Dx); Special Screening for Malignant Neoplasms, Colon Social History Tobacco Use Types Packs/Day Years Used Date Smoking Tobacco: Never Assessed Sex and Gender Information Value Date Recorded Sex Assigned at Not on file 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
--- OUTSIDE RECORDS SUMMARY | 2025-07-19 13:47 | XMS_ITS | Encounter Summary ---
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
--- OUTSIDE RECORDS SUMMARY | 2025-07-19 13:47 | XMS_ITS | Encounter Summary ---
Author Organization [facility] Address [address] [place] [address] Care Team Providers Care Supervisor Aircraft Cleaning Name Role Phone Mercedes Solis MD Primary Care Provider Encounter Details Date Type Department Care Team (Latest Contact Info) Description 01/07/2001 Outpatient Historical [facility] Medicine- [address] [phone] Miki Ramos MD [address] [phone] Dysuria (Primary Dx); Backache, unspecified; Abdominal pain, unspecified site; Special screening for malignant neoplasm of prostate Social History Tobacco Use Types Packs/Day Years Used Date Smoking Tobacco: Never Assessed Sex and Gender Information Value Date Recorded Sex Assigned at Not on file 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
--- OUTSIDE RECORDS SUMMARY | 2025-07-19 13:47 | XMS_ITS | Encounter Summary ---
Author Organization [facility] Address [address] [place] [address] Care Team Providers Care 411 Directory Assistance Operator Name Role Phone Mercedes Solis MD Primary Care Provider [phone] Encounter Details Date Type Department Care Team (Latest Contact Info) Description 05/26/2006 Outpatient Historical [facility] [address] [place] [address] Chapin Carver NP NO ADDRESS ON FILE Unspecified Urinary Incontinence (Primary Dx); Venereal Disease Contact Social History Tobacco Use Types Packs/Day Years Used Date Smoking Tobacco: Never Assessed Sex and Gender Information Value Date Recorded Sex Assigned at Not on file 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
--- OUTSIDE RECORDS SUMMARY | 2025-07-19 13:47 | XMS_ITS | Encounter Summary ---
[facility] Address [address] 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
--- OUTSIDE RECORDS SUMMARY | 2025-07-19 13:47 | XMS_ITS | Encounter Summary ---
Author Organization [facility] Address [address] [place] [address] Care Team Providers Care Brand Attendant Name Role Phone Mercedes Solis MD Primary Care Provider [phone] Encounter Details Date Type Department Care Team (Latest Contact Info) Description 01/15/2006 Outpatient Historical [facility]- [address] [phone] Nagi Rajan, PA NO ADDRESS ON FILE Pain in Limb (Primary Dx) Social History Tobacco Use Types Packs/Day Years Used Date Smoking Tobacco: Never Assessed Sex and Gender Information Value Date Recorded Sex Assigned at Not on file 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
--- OUTSIDE RECORDS SUMMARY | 2025-07-19 13:47 | XMS_ITS | Data Portability ---
Author Organization [facility] Address [address] [place] [address] Assessment Encounter Date Assessment Date Assessment LastModified [...] SARS-CoV-2 (COVID19) Ag panel, rapid IA, upper respirator y specimen 2024 025 [facility], [address] [place] [address], [address], 5 12:04:46 rapid strep group A, throat 2024 025 [facility], [address] [place] [address], [address], 5 11:42:27 levetirace ferrell, serum 2024 025 [facility], [address] [place], [address], 5 23:04:23 CBC w/ diff 2024 025 [facility], [address] [place], [address], 5 16:43:15 CMP, serum or plasma 2024 025 [facility], [address] [place], [address], 5 16:43:16 lipid panel, serum 2024 025 [facility], [address] [place], [address], 5 16:43:18 albumin/cr eatinine, ratio, urine [address], [address] [place] [address], [address], 4 14:38:41 Referral otolaryngo logist referral - CALL [phone] WITH QUESTIONS/ CONCERNS. FAX:[phone] MATT VILLANUEVA/CASE MANAGEMENT 2024 025 [email or web address] [facility], [address] [place], [address], 5 11:27:14 Procedures None recorded. Surgeries None recorded. Imaging None recorded. Medication Orders clindamyci n HCl 300 mg capsule 2024 025 [place], [address], [place], [address], 12:20:17 Depo-Medro l 40 mg/mL suspension for injection [address] [email or web address] [address] [facility] [place], [address], 11:58:57 dexamethas one sodium phosphate 4 mg/mL injection solution 2024 [email or web address] [address] [facility] [place], [address], 11:59:50 lisinopril 20 mg tablet 2024 025 [facility], [place], [address], 20:17:45 carvedilol 6.25 mg tablet 2024 025 [facility], [address], 5 20:18:04 Claritin 10 mg tablet 2024 025 [facility], [address], 5 20:16:22 Flonase Allergy Relief 50 mcg/actuat ion nasal spray,susp ension 2024 025 [facility] [place], [address], 5 20:16:48 EpiPen 2-Ovidio 0.3 mg/0.3 mL injection, auto-injec tor 2024 025 [facility], [address] [address], [place], [address], 16:23:34 Depo-Medro l 80 mg/mL suspension for injection 2024 025 Not available 14:42:55 dexamethas one sodium phosphate 4 mg/mL injection solution 2024 025 [email or web address] Not available 14:42:58 Benadryl 25 mg capsule 2024 025 [email or web address] Not available 09:50:32 Depo-Medro l 40 mg/mL suspension for injection 2024 025 [email or web address] Not available 14:42:52 dexamethas one sodium phosphate 4 mg/mL injection solution 2024 025 [email or web address] Not available 14:42:58 Flonase Allergy Relief 50 mcg/actuat ion nasal spray,susp ension [address] [facility], [place], [address], 5 12:38:04 Claritin 10 mg tablet [address] [facility], [facility] [place], [address], 20:15:44 Patient TargetsNo targets recorded. 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 FAX:[phone] MATT VILLANUEVA/CASE MANAGEMENT Referring Physician: Mariposa Parra, Family Medicine, Encounter Date: 02/19/2025 Results Created Date Observation Date Name Description Value Unit Range Abnormal Flag Note LastModifiedBy Organization Detail LastModifiedTime 05/04/2005/05/2024 CBC WBC 5.37 x10(3 )/uL 4.23 - 9.07 Not Available [facility] [address] [place], [address], 05/05/2024 17:56:25 05/04/2005/05/2024 CBC RBC 4.66 x10(6 )/uL 4.63 - 6.08 Not Available [facility] [address] [place], [address], 05/05/2024 17:56:25 05/04/2005/05/2024 CBC HGB 13.9 g/dL 13.7 - 17.5 Not Available [facility] [address] [place], [address], 05/05/2024 17:56:25 05/04/2005/05/2024 CBC HCT 44.6 % 40.1 - 51.0 Not Available [facility] [address] [place], [address], 05/05/2024 17:56:25 05/04/2005/05/2024 CBC MCV 95.7 fL 79.0 - 92.2 high Not Available [facility] [address] [place], [address], 05/05/2024 17:56:25 05/04/2005/05/2024 CBC MCH 29.8 pg 25.7 - 32.2 Not Available [facility] [address] [place], [address], 05/05/2024 17:56:25 05/04/2005/05/2024 CBC MCHC 31.2 g/dL 32.3 - 36.5 low Not Available [facility] [address] [place], [place], [address], 05/05/2024 17:56:25 05/04/2005/05/2024 CBC platelet count 216 % 163 - 337 Not Available [facility] [address] [place], [address], 05/05/2024 17:56:25 05/04/2005/05/2024 CBC neut% 49.7 % 34.0 - 67.9 Not Available [facility] [address] [place], [address], 05/05/2024 17:56:25 05/04/20 24 05/05/2024 CBC lymph% 33.7 % 21.8 - 53.1 Not Available [facility] [address], [place], [address], 05/05/2024 17:56:25 05/04/2005/05/2024 CBC mono% 12.5 % 5.3 - 12.2 high Not Available [facility] [address], [place], [address], 05/05/2024 17:56:25 05/04/20 24 05/05/2024 CBC baso% 0.7 % 0.2 - 1.2 Not Available [facility] [address] [place], [place], [address], 05/05/2024 17:56:25 05/04/2005/05/2024 CBC eo% 3.2 % 0.8 - 7.0 Not Available [facility] [address] [place], [address], 05/05/2024 17:56:25 05/04/2005/05/2024 CBC Ig% 0.2 % 0.0 - 0.4 Not Available [facility] [address] [place], [address], 05/05/2024 17:56:25 05/04/20 24 05/05/2024 CBC neut# 2.67 x10(3 )/uL 1.78 - 5.38 Not Available [facility] [address] [place], [place], [address], 05/05/2024 17:56:25 05/04/2005/05/2024 CBC lymph# 1.81 x10(3 )/uL 1.32 - 3.57 Not Available [facility] [address] [place], [address], 05/05/2024 17:56:25 05/04/2005/05/2024 CBC mono# 0.67 x10(3 )/uL 0.30 - 0.82 Not Available [facility] [address], [place], [place], [address], 05/05/2024 17:56:25 05/04/2005/05/2024 CBC baso# 0.04 x10(3 )/uL 0.01 - 0.08 Not Available [facility] [address], [place], [place], [address], 05/05/2024 17:56:25 05/04/20 24 05/05/2024 CBC eo# 0.17 x10(3 )/uL 0.04 - 0.54 Not Available [facility] [address], [place], [address], 05/05/2024 17:56:25 05/04/2005/05/2024 CBC Ig# 0.01 x10(3 )/uL 0.00 - 0.03 Not Available [facility] [address], [place], [address], 05/05/2024 17:56:25 05/04/2005/05/2024 CBC RDW-CV 13.0 % 11.6 - 14.4 Not Available [facility] [address], [place], [address], 05/05/2024 17:56:25 05/04/2005/05/2024 CBC RDW-SD 45.0 fL 35.1 - 43.9 high Not Available [facility] [address], [place], [address], 05/05/2024 17:56:25 05/04/2005/05/2024 CBC MPV 10.6 fL 9.4 - 12.4 Not Available [facility] [address], [place], [place], [address], 05/05/2024 17:56:25 05/04/2005/05/2024 CBC NRBC# 0.00 x10(3 )/uL 0.00 - 0.01 Not Available [facility] [address], [place], [place], [address], 05/05/2024 17:56:25 10/10/20 24 05/05/2024 CBC NRBC% 0.0 % 0.0 - 0.2 Not Available [facility] [address] [place], [address], 05/05/2024 17:56:25 05/04/20 24 05/05/2024 PSA PSA 0.946 NG/mL 0.000 - 4.000 Not Available [facility] [address] [place], [address], 05/05/2024 17:56:26 05/04/2005/05/2024 TSH TSH 1.010 mIU/L 0.465 - 4.680 Not Available [facility] [address] [place], [address], 05/05/2024 17:56:27 05/04/2005/05/2024 VITAM IN B12 vitamin B12 977 pg/mL 239 - 931 high Not Available [facility] [address] [place], [address], 05/05/2024 17:56:28 05/04/2005/05/2024 COMPR EHENS TANA METAB OLIC PANEL (CMP) albumin 3.9 g/dL 3.5 - 5.0 Not Available [facility] [address] [place], [address], 05/05/2024 17:56:29 05/04/2005/05/2024 COMPR EHENS TANA METAB OLIC PANEL (CMP) chloride 108 mmol/ L 98 - 107 high Not Available [facility] [address] [place], [address], 05/05/2024 17:56:29 05/04/20 24 05/05/2024 COMPR EHENS TANA METAB OLIC PANEL (CMP) creatinine 0.86 mg/dL 0.66 - 1.25 Not Available [facility] [address] [place], [address], 05/05/2024 17:56:29 05/04/2005/05/2024 COMPR EHENS TANA METAB OLIC PANEL (CMP) eco2 27 mmol/ L 22 - 30 Not Available [facility] [address] [place], [address], 05/05/2024 17:56:29 05/04/2005/05/2024 COMPR EHENS TANA METAB OLIC PANEL (CMP) glucose 105 mg/dL 74 - 106 Not Available [facility] [address] [place], [address], 05/05/2024 17:56:29 05/04/2005/05/2024 COMPR EHENS TANA METAB OLIC PANEL (CMP) potassium 3.40 mmol/ L 3.50 - 5.10 low Not Available [facility] [address] [place], [address], 05/05/2024 17:56:29 05/04/2005/05/2024 COMPR EHENS TANA METAB OLIC PANEL (CMP) alkaline phos 79 U/L 38 - 126 Not Available [facility] [address] [place], [address], 05/05/2024 17:56:29 05/04/2005/05/2024 COMPR EHENS TANA METAB OLIC PANEL (CMP) sodium 142 mmol/ L 137 - 145 Not Available [facility] [address] [place], [address], 05/05/2024 17:56:29 05/04/2005/05/2024 COMPR EHENS TANA METAB OLIC PANEL (CMP) total bilirubin 2.1 mg/dL 0.2 - 1.3 high Not Available [facility] [address] [place], [address], 05/05/2024 17:56:29 05/04/2005/05/2024 COMPR EHENS TANA METAB OLIC PANEL (CMP) total protein 6.3 g/dL 6.3 - 8.2 Not Available [facility] [address] [place], [address], 05/05/2024 17:56:29 05/04/2005/05/2024 COMPR EHENS TANA METAB OLIC PANEL (CMP) ALT 31 U/L 0 - 50 Not Available [facility] [address] [place], [address], 05/05/2024 17:56:29 05/04/20 24 05/05/2024 COMPR EHENS TANA METAB OLIC PANEL (CMP) BUN/urea 14 mg/dL 9 - 20 Not Available [facility] [address] [place], [address], 05/05/2024 17:56:29 05/04/2005/05/2024 COMPR EHENS TANA METAB OLIC PANEL (CMP) eGFR 90 mL/mi n/1.7 3m2 >60 *eGFR Refer ence Value s Veronica l: >60 mL/mi n/1.7 3m2 Abnor mal: < 60 mL/mi n/1.7 3m2 Not Available [facility] [address] [place], [address], 05/05/2024 17:56:29 05/04/20 24 05/05/2024 COMPR EHENS TANA METAB OLIC PANEL (CMP) A/G ratio 1.6 (calc ) 1.0 - 2.5 Not Available [facility] [address] [place], [address], 05/05/2024 17:56:29 05/04/20 24 05/05/2024 COMPR EHENS TANA METAB OLIC PANEL (CMP) globulin 2.4 g/dL_ (calc ) 1.9 - 3.7 Not Available [facility] [address] [place], [address], 05/05/2024 17:56:29 05/04/2005/05/2024 COMPR EHENS TANA METAB OLIC PANEL (CMP) calcium 9.1 mg/dL 8.4 - 10.2 Not Available [facility] [address] [place], [address], 05/05/2024 17:56:29 05/04/2005/05/2024 COMPR EHENS TANA METAB OLIC PANEL (CMP) AST 35 U/L 17 - 59 Not Available [facility] [address] [place], [address], 05/05/2024 17:56:29 05/04/2005/05/2024 COMPR EHENS TANA METAB OLIC PANEL (CMP) BUN/crea ratio 17 (calc ) 6 - 22 Not Available [facility] [address] [place], [address], 05/05/2024 17:56:29 05/04/2005/05/2024 LIPID PANEL VLDL (calculated) 41 mg/dL (calc ) 0 - 30 high Not Available [facility] [address] [place], [address], 05/05/2024 17:56:30 05/04/2005/05/2024 LIPID PANEL direct HDL 25 mg/dL 40 - 60 low Not Available [facility] [address] [place], [address], 05/05/2024 17:56:30 05/04/2005/05/2024 LIPID PANEL triglyceride s 204 mg/dL 0 - 199 high Not Available [facility] [address] [place], [address], 05/05/2024 17:56:30 05/04/2005/05/2024 LIPID PANEL cholesterol 118 mg/dL <200 Not Available [facility] [address] [place], [address], 05/05/2024 17:56:30 05/04/2005/05/2024 LIPID PANEL chol/DHDL ratio 5 %_(ca lc) 0 - 5 Not Available [facility] [address] [place], [address], 05/05/2024 17:56:30 05/04/2005/05/2024 LIPID PANEL LDL (calculated) 52 mg/dL 0 - 100 Not Available [facility] [address] [place], [address], 05/05/2024 17:56:30 05/17/20 24 05/17/2024 album in/cr eatin ine, ratio , urine Albumin 30 mg/L (abnor mal) Not Available [address], [address], 05/17/2024 12:48:06 05/17/20 24 05/17/2024 album in/cr eatin ine, ratio , urine Creatinine 300 mg/dL (veronica l) Not Available [address], [address], 05/17/2024 12:48:06 05/17/20 24 05/17/2024 album in/cr eatin ine, ratio , urine A:C Ratio <30 mg/g (veronica l) Not Available [address], [address], 05/17/2024 12:48:06 01/24/2001/24/2025 CBC WBC 4.91 x10(3 )/uL 4.23 - 9.07 Not Available [facility] [address] [place], [address], 01/24/2025 16:43:15 01/24/20 25 01/24/2025 CBC RBC 4.77 x10(6 )/uL 4.63 - 6.08 Not Available [facility] [address] [place], [address], 01/24/2025 16:43:15 01/24/20 25 01/24/2025 CBC HGB 14.5 g/dL 13.7 - 17.5 Not Available [facility] [address] [place], [address], 01/24/2025 16:43:15 01/24/20 25 01/24/2025 CBC HCT 42.8 % 40.1 - 51.0 Not Available [facility] [address] [place], [address], 01/24/2025 16:43:15 01/24/20 25 01/24/2025 CBC MCV 89.7 fL 79.0 - 92.2 Not Available [facility] [address] [place], [address], 01/24/2025 16:43:15 01/24/20 25 01/24/2025 CBC MCH 30.4 pg 25.7 - 32.2 Not Available [facility] [address] [place], [address], 01/24/2025 16:43:15 01/24/20 25 01/24/2025 CBC MCHC 33.9 g/dL 32.3 - 36.5 Not Available [facility] [address] [place], [address], 01/24/2025 16:43:15 01/24/20 25 01/24/2025 CBC platelet count 211 x10(3 )/uL 163 - 337 Not Available [facility] [address] [place], [address], 01/24/2025 16:43:15 01/24/20 25 01/24/2025 CBC neut% 53.2 % 34.0 - 67.9 Not Available [facility] [address] [place], [address], 01/24/2025 16:43:15 01/24/20 25 01/24/2025 CBC lymph% 32.4 % 21.8 - 53.1 Not Available [facility] [address] [place], [place], [address], 01/24/2025 16:43:15 01/24/20 25 01/24/2025 CBC mono% 11.0 % 5.3 - 12.2 Not Available [facility] [address] [place], [address], 01/24/2025 16:43:15 01/24/20 25 01/24/2025 CBC baso% 0.6 % 0.2 - 1.2 Not Available [facility] [address], [place], [place], [address], 01/24/2025 16:43:15 01/24/20 25 01/24/2025 CBC eo% 2.6 % 0.8 - 7.0 Not Available [facility] [address], [place], [address], 01/24/2025 16:43:15 01/24/20 25 01/24/2025 CBC Ig% 0.2 % 0.0 - 0.4 Not Available [facility] [address] [place], [address], 01/24/2025 16:43:15 01/24/20 25 01/24/2025 CBC neut# 2.61 x10(3 )/uL 1.78 - 5.38 Not Available [facility] [address] [place], [address], 01/24/2025 16:43:15 01/24/2001/24/2025 CBC lymph# 1.59 x10(3 )/uL 1.32 - 3.57 Not Available [facility] [address] [place], [address], 01/24/2025 16:43:15 01/24/20 25 01/24/2025 CBC mono# 0.54 x10(3 )/uL 0.30 - 0.82 Not Available [facility] [address] [place], [address], 01/24/2025 16:43:15 01/24/20 25 01/24/2025 CBC baso# 0.03 x10(3 )/uL 0.01 - 0.08 Not Available [facility] [address] [place], [address], 01/24/2025 16:43:15 01/24/2001/24/2025 CBC eo# 0.13 x10(3 )/uL 0.04 - 0.54 Not Available [facility] [address] [place], [address], 01/24/2025 16:43:15 01/24/20 25 01/24/2025 CBC Ig# 0.01 x10(3 )/uL 0.00 - 0.03 Not Available [facility] [address] [place], [address], 01/24/2025 16:43:15 01/24/20 25 01/24/2025 CBC RDW-CV 12.6 % 11.6 - 14.4 Not Available [facility] [address] [place], [address], 01/24/2025 16:43:15 01/24/20 25 01/24/2025 CBC RDW-SD 41.1 fL 35.1 - 43.9 Not Available [facility] [address] [place], [address], 01/24/2025 16:43:15 01/24/2001/24/2025 CBC MPV 11.3 fL 9.4 - 12.4 Not Available [facility] [address] [place], [address], 01/24/2025 16:43:15 01/24/2001/24/2025 CBC NRBC# 0.00 x10(3 )/uL 0.00 - 0.01 Not Available [facility] [address] [place], [address], 01/24/2025 16:43:15 01/24/2001/24/2025 CBC NRBC% 0.0 % 0.0 - 0.2 Not Available [facility] [address] [place], [address], 01/24/2025 16:43:15 01/24/2001/24/2025 COMPR EHENS TANA METAB OLIC PANEL (CMP) albumin 3.9 g/dL 3.5 - 5.0 Not Available [facility] [address] [place], [address], 01/24/2025 16:43:16 01/24/20 25 01/24/2025 COMPR EHENS TANA METAB OLIC PANEL (CMP) chloride 110 mmol/ L 98 - 107 high Not Available [facility] [address] [place], [address], 01/24/2025 16:43:16 01/24/20 25 01/24/2025 COMPR EHENS TANA METAB OLIC PANEL (CMP) creatinine 0.87 mg/dL 0.66 - 1.25 Not Available [facility] [address] [place], [address], 01/24/2025 16:43:16 01/24/20 25 01/24/2025 COMPR EHENS TANA METAB OLIC PANEL (CMP) eco2 26 mmol/ L 22 - 30 Not Available [facility] [address] [place], [address], 01/24/2025 16:43:16 01/24/20 25 01/24/2025 COMPR EHENS TANA METAB OLIC PANEL (CMP) glucose 110 mg/dL 74 - 106 high Not Available [facility] [address] [place], [address], 01/24/2025 16:43:16 01/24/20 25 01/24/2025 COMPR EHENS TANA METAB OLIC PANEL (CMP) potassium 3.30 mmol/ L 3.50 - 5.10 low Not Available [facility] [address] [place], [address], 01/24/2025 16:43:16 01/24/20 25 01/24/2025 COMPR EHENS TANA METAB OLIC PANEL (CMP) alkaline phos 72 U/L 38 - 126 Not Available [facility] [address] [place], [address], 01/24/2025 16:43:16 01/24/20 25 01/24/2025 COMPR EHENS TANA METAB OLIC PANEL (CMP) sodium 142 mmol/ L 137 - 145 Not Available [facility] [address] [place], [address], 01/24/2025 16:43:16 01/24/20 25 01/24/2025 COMPR EHENS TANA METAB OLIC PANEL (CMP) total bilirubin 2.3 mg/dL 0.2 - 1.3 high Not Available [facility] [address] [place], [address], 01/24/2025 16:43:16 01/24/20 25 01/24/2025 COMPR EHENS TANA METAB OLIC PANEL (CMP) total protein 6.3 g/dL 6.3 - 8.2 Not Available [facility] [address] [place], [address], 01/24/2025 16:43:16 01/24/20 25 01/24/2025 COMPR EHENS TANA METAB OLIC PANEL (CMP) ALT 16 U/L 0 - 50 Not Available [facility] [address] [place], [address], 01/24/2025 16:43:16 01/24/20 25 01/24/2025 COMPR EHENS TANA METAB OLIC PANEL (CMP) BUN/urea 10 mg/dL 9 - 20 Not Available [facility] [address] [place], [address], 01/24/2025 16:43:16 01/24/20 25 01/24/2025 COMPR EHENS TANA METAB OLIC PANEL (CMP) eGFR 89 mL/mi n/1.7 3m2 >60 *eGFR Refer ence Value s Veronica l: >60 mL/mi n/1.7 3m2 Abnor mal: < 60 mL/mi n/1.7 3m2 Not Available [facility] [address] [place], [address], 01/24/2025 16:43:16 01/24/20 25 01/24/2025 COMPR EHENS TANA METAB OLIC PANEL (CMP) A/G ratio 1.7 (calc ) 1.0 - 2.5 Not Available [facility] [address] [place], [address], 01/24/2025 16:43:16 01/24/20 25 01/24/2025 COMPR EHENS TANA METAB OLIC PANEL (CMP) globulin 2.4 g/dL_ (calc ) 1.9 - 3.7 Not Available [facility] [address] [place], [address], 01/24/2025 16:43:16 01/24/20 25 01/24/2025 COMPR EHENS TANA METAB OLIC PANEL (CMP) calcium 9.1 mg/dL 8.4 - 10.2 Not Available [facility] [address] [place], [address], 01/24/2025 16:43:16 01/24/20 25 01/24/2025 COMPR EHENS TANA METAB OLIC PANEL (CMP) AST 20 U/L 17 - 59 Not Available [facility] [address] [place], [address], 01/24/2025 16:43:16 01/24/20 25 01/24/2025 COMPR EHENS TANA METAB OLIC PANEL (CMP) BUN/crea ratio 12 (calc ) 6 - 22 Not Available [facility] [address] [place], [address], 01/24/2025 16:43:16 01/24/20 25 01/24/2025 LIPID PANEL VLDL (calculated) 36 mg/dL (calc ) 0 - 30 high Not Available [facility] [address] [place], [address], 01/24/2025 16:43:18 01/24/20 25 01/24/2025 LIPID PANEL direct HDL 28 mg/dL 40 - 60 low Not Available [facility] [address] [place], [address], 01/24/2025 16:43:18 01/24/20 25 01/24/2025 LIPID PANEL triglyceride s 180 mg/dL 0 - 199 Not Available [facility] [address] [place], [address], 01/24/2025 16:43:18 01/24/20 25 01/24/2025 LIPID PANEL cholesterol 163 mg/dL <200 Not Available [facility] [address] [place], [address], 01/24/2025 16:43:18 01/24/20 25 01/24/2025 LIPID PANEL chol/DHDL ratio 6 %_(ca lc) 0 - 5 high Not Available [facility] [address] [place], [address], 01/24/2025 16:43:18 01/24/20 25 01/24/2025 LIPID PANEL LDL (calculated) 99 mg/dL 0 - 100 Not Available [facility] [address] [place], [address], 01/24/2025 16:43:18 01/24/20 25 01/25/2025 DIREC T BILIR UBIN direct bilirubin 0.4 mg/dL 0.0 - 0.4 Not Available [facility] [address] [place], [address], 01/25/2025 12:22:02 01/24/20 25 01/26/2025 BILTATIANA NOE, DIREC T bilirubin, direct 0.4 mg/dL <0.07- 0.2 high Not Available [facility] [address] [place], [address], 01/26/2025 23:04:22 01/24/2001/26/2025 LEVET IRACE FERRELL levetiraceta m 30 ug/mL 10-40 INTER PRETI VE INFOR MATIO N: Keppr a (Leve tirac etam) Thera peuti c Range : 10-40 ug/mL Toxic : Not well Estab lishe d Pharm acoki netic s of levet irace ferrell are affec rolanda by renal funct ion. Adver se effec ts may inclu de somno lence , weakn ess, heada joel and vomit ing. This levet irace ferrell (Kepp ra) immun oassa y uses the ARK Diagn ostic s reage nts, which has known cross -reac tivit y with the drug briva racet am (Briv iact) and may repor t inacc urate resul ts. Patie nts trans ition ing from levet irace ferrell to briva racet am or those who are using both medic ation s shoul d not monit or drug desiree ntrat ions with the ARK Diagn ostic s assay . These patie nts shoul d be monit ored using a valid ated chrom atogr aphic metho dolog y that disti nguis hes betwe en drugs to deter mine drug desiree ntrat ions. Perfo rmed By: [facility] Labor at[facility] [address] [place] [address] Labor atory Direc tor: Dilshad lyons MD, PhD ROSAURA Gresham r: [id number] Not Available [facility] [address] [place], [address], 01/26/2025 23:04:23 01/24/2001/26/2025 BILIR UBIN, INDIR ECT bilirubin, indirect 0.8 mg/dL 0.2-1. 3 Not Available [facility] [address] [place], [address], 01/26/2025 23:04:32 01/24/20 25 01/26/2025 BILIR UBIN, TOTAL bilirubin, total 1.2 mg/dL <0.2-1 .2 Not Available [facility] [address] [place], [address], 01/26/2025 23:04:33 03/08/2003/08/2025 ortho stati c vital s* Unknown Analyte 181/89 Not Available [facility] [address] [place] [address], [address], 03/08/2025 14:54:02 03/08/2003/08/2025 ortho stati c vital s* Unknown Analyte 63 Not Available [facility] [address] [place] [address], [address], 03/08/2025 14:54:02 03/08/2003/08/2025 ortho stati c vital s* Unknown Analyte 172/88 Not Available [facility] [address] [place], [address], 03/08/2025 14:54:02 03/08/2003/08/2025 ortho stati c vital s* Unknown Analyte 77 Not Available [facility] [address] [place], [address], 03/08/2025 14:54:02 03/08/2003/08/2025 ortho stati c vital s* Unknown Analyte 166/79 Not Available [facility] [address] [place], [address], 03/08/2025 14:54:02 03/08/20 25 03/08/2025 ortho stati c vital s* Unknown Analyte 76 Not Available [address], [address], 03/08/2025 14:54:02 07/17/20 25 07/17/2025 influ nickie virus A + B + SARS- CoV-2 (COVI D19) Ag panel , rapid IA, upper respi rator y speci men flu A N Not Available [address], [address], 07/17/2025 11:35:52 07/17/20 25 07/17/2025 influ nickie virus A + B + SARS- CoV-2 (COVI D19) Ag panel , rapid IA, upper respi rator y speci men flu B N Not Available [address], [address], 07/17/2025 11:35:52 07/17/20 25 07/17/2025 influ nickie virus A + B + SARS- CoV-2 (COVI D19) Ag panel , rapid IA, upper respi rator y speci men covid N Not Available [address], [address], 07/17/2025 11:35:52 07/17/20 25 07/17/2025 rapid strep group A, throa t Strep positi ve Not Available [address], [address], 07/17/2025 11:35:59 02/13/20 25 02/12/2025 US, abdom en, compl ete No observ ation record ed. [facility] [address] [facility] [address], [place], [address], 02/12/2025 17:27:54 Result Notes None recorded. Problems Name Problem SNOMED Code Status Onset Date Resolution Date Notes Provider Name and Address Organization Details Recorded Time Coronary arterioscle rosis 40176999 Active 2022 Mariposa Parra NP [address], [address], [facility] 3 14:58:33 Hypertensiv e disorder 95915655 Active 2022 Mariposa Parra NP [address], [address], [facility] 3 14:58:48 Chronic obstructive pulmonary disease 27506818 Active 2022 Mariposa Parra NP [address], [address], [facility] 3 15:00:21 Vitamin D deficiency 54477717 Active 2022 [facility] 12:53:19 Focal onset aware epileptic seizure 8974352760260 00 Active 2024 Mariposa Parra NP [address], [address], [facility] 5 15:16:53 History of atrial fibrillatio n 500671203 Active 2024 Mariposa Parra NP [address], [address], [facility] 5 15:17:26 Mixed hyperlipide linda 546899725 Active 2024 Mariposa Parra NP [address], [address], [facility] 5 15:17:51 Problem Notes None recorded. Procedures Surgical History Date Name Laterality Status Provider Name and Address Organization Details Recorded Time insertion of arterial stent completed Cheryl Churchill [facility] 06/01/2023 12:20:55 procedure on brain completed Cheryl Churchill [facility] 06/01/2023 12:21:34 Imaging Results None recorded. Procedure Notes None recorded. Medical Equipment None Reported. Allergies Allergen ID Allergen Name Allergen Category Reaction Reaction Severity Criticality Documentation Date Start Date Code Code System Note Provider Name and Address Organization Details Recorded Time 53754 Product containin g penicilli n (product) medicatio n Not available Not available Not available 11/12/2022 55977 8001 SNOMED Libertad Banks [facility] 14:17:43 Medications Name Sig Start Date Stop [...] Available mometasone 50 mcg/actuati on nasal spray Pinola 2 sprays every day by intranasa l [...] mass index (BMI) Body weight Body temperature Respiratory rate Heart rate Oxygen saturation Systolic And Diastolic Provider Name and Address Organization Details Last Updated DateTime 5 165.1 cm 37.3 kg/m2 154669. 79 g 98.6 [degF] 18 /min 65 /min 98 % 126/70 mm[Hg] Yaneth TORIBIO - [facility] 5 15:27:42 Date Recorded Body height Body mass index (BMI) Body weight Body temperature Heart rate Oxygen saturation Respiratory rate Systolic And Diastolic Provider Name and Address Organization Details Last Updated DateTime 5 165.1 cm 37 kg/m2 627353. 66 g 97.6 [degF] 52 /min 98 % 18 /min 122/75 mm[Hg] Laura Antoine [facility] 5 16:07:39 Date Recorded Body height Body mass index (BMI) Body weight Body temperature Heart rate Oxygen saturation Respiratory rate Systolic And Diastolic Provider Name and Address Organization Details Last Updated DateTime 5 165.1 cm 37.3 kg/m2 583379. 74 g 98.4 [degF] 77 /min 98 % 18 /min 172/88 mm[Hg] Laura [facility] 5 14:55:47 Date Recorded Body height Body mass index (BMI) Body weight Body temperature Heart rate Oxygen saturation Respiratory rate Systolic And Diastolic Provider Name and Address Organization Details Last Updated DateTime 5 165.1 cm 37.6 kg/m2 474865. 28 g 98.6 [degF] 96 /min 97 % 18 /min 142/80 mm[Hg] Catherine Gar [facility] 5 11:35:09 Social History Question Answer Notes LastModified by Organizat ion Details LastModified Time Tobacco Smoking Status Former Smoker Libertad Banks [facility] 11/12/2022 14:20:42 Do You Have An Advance [...] Or The Highest Degree You Have Received? [id number] Information not available 11/12/2022 Have You Ever Been Tested For Hepatitis C No Information not available 06/01/2023 Have You Had A Blood Transfusion Before 1991? No Information not available 06/01/2023 Have You Had Care Home Dialysis? No Information not available 11/12/2022 Have [...] Of Your Most Recent Tobacco Screening? 07/17/2025 [email or web address] Information not available 07/17/2025 How Many Children [...] Functional Status Question Answer Note LastModified by [employer] ion Details LastModified Time Do you use [...] anxious, or unable to sleep at night)? [id number] [email or web address] Information not available 11/12/2022 Do you have difficulty concentrating, remembering or making decisions? Yes [email or web address] Information no t available 11/12/2022 Family History Nothing Reported Notes:Father had unspec canc er Medical History No medical history recorded. Immunizations Vaccine Type Date Status Note Provider Nam e and Address Organization Details Recorded Time pneumococcal polysaccharide PPV23 8 [facility]/12[facility] 14:17:29 Pneumococcal conjugate PCV 13 6 completed Libertadefraín Banks [facility] 11/12/2022 14:17:29 zoster live 6 completed [facility] 11/12/2022 14:17:29 Tdap 3 completed Mariposa Parra NP [address] [place] [address], [address], [facility] 02/22/2023 15:41:50 Past Encounters Encounter ID Performer Location Encounter Start Date Encounter Closed Date Diagnosis/Indication Diagnosis SNOMED-CT Code Diagnosis ICD10 Code Diagnosis IMO Codes Diagnosis Note [id number] RADHA CLEARY DO [facility] [address] [place] [address] 11/12/2022 14:04:00 11/12/2022 15:24:34 Sore throat 478575002 J02.9 Strep was negative. Body mass index 30+ - obesity 814243591 Z68.37 Diet education 17610914 Z71.3 Exercises education, guidance, and counseling 141021697 Z71.89 Acute bronchitis 8126931 2 J20.9 CXR obtained and will send to radiologis t to review. Course of antibiotic s and steroids provided. If not improving or worsening; Let provider know. Dyspnea 055793210 R06.00 Spirometry reviewed; Stiolto inhalers provided to patient. [id number] RADHA CLEARY DO [facility] [address] [place] [address] 02/22/2023 14:53:48 02/23/2023 17:22:23 Adult health examination 806742633 Z00.00 Patient presented to office today for their Medicare Annual Wellness Visit.His A1C is 5.5%; Other labs are pending and will contact patient with results.He had colonoscop y at [facility]; Record has been requested. Chronic ob structive pulmonary disease 11681396 J44.9 Coronary arteriosclerosis 16703536 I25.10 Has hx of stent Hypertensive disorder 38 306337 I10 BP 133/75 Body mass index 30+ - obesity 226086098 Z68.37 BMI 37.6 Diet education 59288437 Z71.3 Exercises education, guidance, and counseling 402395344 Z71.89 Gastroesop hageal reflux disease without esophagitis 236440600 K21.9 Continue omeprazole 40 mg daily. Mixed hyperlipidemia 267 148518 E78.2 Continue atorvastat in 40 mg daily Advance di rective discussed with patient 669865050 Z71.89 Pt declined Administra tion of diphtheria, pertussis, and tetanus vaccine 504428062 Z23 Hepatitis C screening 41 3664025 Z11.59 [id number] RADHA CLEARY DO [facility] [address] [place] [address] 04/29/2023 12:01:24 04/30/2023 13:03:28 Hypertensive disorder 25421393 I10 patient lisinopril dosage increased to 10 mg, will restart plavix and will notify cardiologi in [facility]. Instructed patient to monitor blood pressure and if it remains elevated, call with readings Transient cerebral ischemia 446252124 G45.9 Influenza vaccination declined 240825351 Z28.21 vaccine declined Pneumococc al vaccination declined 246521642 Z28.21 vaccine declined Body mass index 30+ - obesity 980661270 Z68.37 BMI 37.5 Diet education 28922387 Z71.3 Counseled on importance of healthy diet and 20-30 minutes of exercise 3-5 times per week. Exercises education, guidance, and counseling 415290192 Z71.82 [id number] RADHA CLEARY DO [facility] [address] [place] [address] 06/01/2023 12:04:30 06/02/2023 15:51:48 Follow-up visit 868883181 Z09 Patient was released from hospital on Wednesday after sustaining a subdural hemmorrhag e resulting in a craniotomy . Patient had 3 days of inpatient physical therapy and speech therapy. Patient is struggling with fatigue, as to be expected with current medication list and being this close post-op. Hypertensive disorder 38 051657 I10 Patient needing refill of amlodipine 5 mg. Will send 30 day supply to local pharmacy of choice and additional 60 day supply through the mail order pharmacy. Today patients blood pressure is 126/78. Lisinopril was increased to 10mg daily at last visit. Amlodipine was added to regimen during hospital stay and coreg was increased to 12.5mg twice a day. Blood pressure stable with current regimen. Mixed hyperlipidemia 267 396658 E78.2 Increased atorvastat in 80 mg. Vitamin D deficiency 347 92523 E55.9 Patient is taking OTC vit D. Epilepsy d ue to cerebrovascular accident 781800682 I63.9 Decreased keppra from 2 tablets twice a day to 1 tablet twice a day. Continue current dose of lacosamide . Body mass index 30+ - obesity 062751040 Z68.37 BMI 33.8 Counseled on importance of healthy diet and 20-30 minutes of exercise 3-5 times per week. Nontraumat ic intracranial subdural hemorrhage 515114410 I62.00 Hx of subdural hematoma s/p evaluation with Dr. Paris on 05/17; Had a 5 minute focal seizure on 05/20. Started on keppra 2 G BID and Vimpat 150 mg BID. EEG showed no further epileptifo rm activity on this regiment. Transferre d to [facility] and did quite well with planned discharge on 05/29. Arrange PT and Speech therapy with [facility]. Speech therapy is needed for problems with dysphasia. He is also in need of physical therapy for strengthen ing and safety to prevent falls. Last fall was 05/31/2023. He is unable to drive at this time due to recent seizure activity. Therapy to evaluate and treat as indicated. Keppra decreased from 2000mg twice a day to 1000mg twice a day due to lethargy. Discussed with patient and family to monitor for seizures. Will check medication levels today. Dysphasia 93676333 R47.0 2 Speech therapy to evaluate and treat as indicated. [id number] RADHA CLEARY [facility] [address] [place] [address] 06/11/2023 10:35:41 06/14/2023 14:09:19 Influenza-like illness 32469329 B34.9 [id number] RADHA CLEARY [facility] [address] [place] [address] 06/24/2023 11:08:17 06/25/2023 14:54:05 Dysuria 12840072 R30.0 Liver enzy mes level above reference range 660736708 R74.01 [id number] RADHA CLEARY [facility] [address] [place] [address] 11/04/2023 15:16:11 11/05/2023 17:16:33 Chronic obstructive pulmonary disease 21440455 J44.9 Labs obtained and will contact patient with results. Nontraumat ic intracranial subdural hemorrhage 187504361 I62.00 Overall patient is doing well and has upcoming appointmen t with neurologis t. Hypertensive disorder 38 893709 I10 Continue current medication amlodipine , carvedilol and lisinopril [id number] RADHA CLEARY DO [facility] [address] [place] [address] 05/04/2024 15:58:52 05/08/2024 17:43:57 Hypertensive disorder 52432480 I10 Adult heal th examination 197999810 Z00.00 Patient presented to office today for their Medicare Annual Wellness Visit.[facility] insurance. Labs are pending and will contact patient with results. Mixed hyperlipidemia 267 706107 E78.2 Seizure disorder 9908438 02 G40.109 Body mass index 30+ - obesity 389985460 Z68.37 BMI 37.3 Diet education 64919224 Z71.3 Counseled on importance of healthy diet and 20-30 minutes of exercise 3-5 times per week. Exercises education, guidance, and counseling 430253903 Z71.82 Depressive disorder 2778 9007 F32.A Long-term drug therapy 656349787 Z79.878 [id number] RADHA CLEARY [facility] [address] [place] [address] 05/17/2024 12:46:14 05/18/2024 09:21:50 Hypertensive disorder 05656201 I10 [id number] RADHA CLEARY [facility] [address] [place] [address] 01/23/2025 15:10:45 01/24/2025 13:02:51 Chronic obstructive pulmonary disease 73928580 J44.9 Labs obtained and will contact patient with results. Coronary arteriosclerosis 85550513 I25.10 Has hx of stent; follows with cardiology Hypertensive disorder 38 276562 I10 Adeuate control with current medication . History of atrial fibrillation 708503775 Z86.79 117769 Mixed hyperlipidemia 267 277085 E78.2 34264 Focal onse t aware epileptic seizure 7463705595 50842 G40.973 9545650 Body mass index 30+ - obesity 499386618 Z68.37 34955020 BMI 37.3 Diet education 61955920 Z71.3 Counseled on importance of healthy diet and 20-30 minutes of exercise 3-5 times per week. Exercises education, guidance, and counseling 745482873 Z71.82 Finding of fluid behind tympanic membrane 211552408 H65.91 28028919 Recommende d to take a claritin or zyrtec daily. Flonase daily. If symptoms not improving let us know. Allergic rhinitis 172183 04 J30.89 2441934 [id number] RADHA KIRKPATRICKIER [facility] [address] [place] [address] 02/19/2025 15:59:57 02/20/2025 10:02:59 Anaphylaxis 92275878 T78.2XXA 95904295 Depomedrol 80 mg and dex 4 mg given IM and 50 mg of benadryl given in clinic. Loss of equilibrium 8941 9008 R42 5236317 [id number] RADHA CLEARY [facility] [address] [place] [address] 03/08/2025 14:39:37 03/12/2025 09:29:44 Dizziness 932279000 R42 89674 Position BP HRLaying 181/89 63Sitting 172/88 77Standing 166/79 76Will send reading to [facility] Body mass index 30+ - obesity 225721914 Z68.37 21957285 BMI 37.3 Diet education 07057898 Z71.3 Counseled on importance of healthy diet and 20-30 minutes of exercise 3-5 times per week. Exercises education, guidance, and counseling 229538403 Z71.82 Essential hypertension 48597321 I10 [address]4523 His blood pressure is slightly elevated.T cristhian adjusted his medication .Upcoming echo cardiogram appointmen ja next week.Will obtain his recent cardiology note from [place] self Finding of fluid behind tympanic membrane 211351714 H65.93 45075240 Recommende d to take a claritin and flonase daily. Hypertensive disorder 38 254117 I10 Adeuate control with current medication . [id number] RADHA CLEARY DO [facility] [address] [place] [address] 07/17/2025 11:24:44 07/17/2025 16:16:37 Acute cough 3965325552 13743096 R05.1 7967229241 Streptococ travis sore throat 09452905 J02.0 8513984 Health Concerns Section Related Observation LastModified by Organization Detai ls LastModified Time None Recorded Concern Status LastModified by Organization Details LastModified Time None Recorded Advance Directives Directive N: Payers Insurance Date Sequence Insurance Name Policy Number Policy Sullivan Covered Member ID Sullivan Member ID Guarantor Name 07/17/2025 2 [employer] (POS II) [id number] Farshad Parra [id number] Farshad Parra 07/17/2025 1 [employer] (MEDICARE REPLACEMENT /ADVANTAGE - PPO) [id number] Farshad Parra [id number] Farshad Parra Notes Date Note Type Note Provider Name and Address Organization Details Recorded Time 01/23/2025 text/html Patient complains that his right ear is buzzing.Also has been having back pain.He follows with neurology and cardiology. Mariposa Parra NP [address], [address], [facility] 01/23/2025 16:16:26 02/19/2025 text/html Walk in with complaints of a wasp sting located on his lip, that just occurred prior to this visit. He became incontinent of urine initially and diaphoretic. He used his epi-pen and has started feeling better. He denies trouble swallowing or wheezing.He is also complaining of his balance being off for past couple of months. Mariposa Parra NP [address], [address], [facility] 02/20/2025 09:41:28 03/08/2025 text/html Patient is awaiting an appointment with [facility] in [place]. They requested orthostatic vitals prior to being seen. His blood pressure is slightly elevated. He has been taking his lisinopril. His heart rate had been low and he had cut his carvedilol to 1/2 tablet twice daily per cardiology. He continues to have dizziness and feels like right ear is plugged. He states when he leans forward, he feels like he is going to fall instead of being able to correct his stance. Mariposa Parra NP [address], [address], [facility] 03/08/2025 15:59:48 07/17/2025 text/html CHIEF COMPLAINT: Chief Complaint Patient [...] circulatory system - Atherosclerotic heart disease of mo[place] coronary artery without angina pectoris - Essential (primary) hypertension - Chronic obstructive pulmonary disease, unspecified - Vitamin D deficiency, unspecified Mariposa Parra NP [address], [address], [facility] 07/17/2025 12:21:35
--- OUTSIDE RECORDS SUMMARY | 2025-07-19 13:47 | XMS_ITS | Encounter Summary ---
Author Organization [facility] Address [address] [place] [address] Care Team Providers Care Braiding Machine Operator Name Role Phone Mercedes Solis MD Primary Care Provider Encounter Details Date Type Department Care Team (Latest Contact Info) Description 12/18/2005 Outpatient Historical [facility] Medicine- [address] [phone] Nagi Rajan, [place] NO ADDRESS ON FILE Open Wound of Finger(s) , Complicated (Primary Dx) Social History Tobacco Use Types Packs/Day Years Used Date Smoking Tobacco: Never Assessed Sex and Gender Information Value Date Recorded Sex Assigned at Not on file Legal Sex Male 5:50 AM [employer] Gender Identity Not on file Sexual Orientation Not on file documented as of this encounter Plan of Treatment Not on file documented as of this encounter Visit Diagnoses Diagnosis Open wound of finger(s) , complicated- Primary documented in this encounter Care Teams Braiding Machine Operator Relationship Specialty Start Date End Date Mercedes Solis MD [address] [address] PCP - General Family Practice 06/08/16 documented as of this encounter
--- OUTSIDE RECORDS SUMMARY | 2025-07-19 13:47 | XMS_ITS | Encounter Summary ---
Author Organization [facility] Address [address] [place] [address] Care Team Providers Care Guide Winder Name Role Phone Mercedes Solis MD Primary Care Provider Encounter Details Date Type Department Care Team (Latest Contact Info) Description 02/07/2007 Outpatient Historical [facility] [address] [place] [address] Annia Gonzalez MD NO ADDRESS ON FILE Patellar Tendinitis (Primary Dx) Social History Tobacco Use Types Packs/Day Years Used Date Smoking Tobacco: Never Assessed Sex and Gender Information Value Date Recorded Sex Assigned at Not on file Legal Sex Male 5:50 AM KARATE BLACK BELT Gender Identity Not on file Sexual Orientation Not on file documented as of this encounter Plan of Treatment Not on file documented as of this encounter Visit Diagnoses Diagnosis Patellar tendinitis- Primary documented in this encounter Care Teams Guide Winder Relationship Specialty Start Date End Date Mercedes Solis MD [address] [phone] PCP - General Family Practice 06/08/16 documented as of this encounter
--- OUTSIDE RECORDS SUMMARY | 2025-07-19 13:47 | XMS_ITS | Encounter Summary ---
Author Organization [facility] Address [address] [place] [address] Care Team Providers Care Reproduction Technician Name Role Phone Mercedes Solis MD Primary Care Provider [phone] Encounter Details Date Type Department Care Team (Latest Contact Info) Description 12/11/2005 Outpatient Historical [facility] Medicine- [address] [phone] Nagi Rajan, [place] NO ADDRESS ON FILE Open Wound of Finger(s) , Complicated (Primary Dx) Social History Tobacco Use Types Packs/Day Years Used Date Smoking Tobacco: Never Assessed Sex and Gender Information Value Date Recorded Sex Assigned at Not on file 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
--- OUTSIDE RECORDS SUMMARY | 2025-07-19 13:47 | XMS_ITS | Encounter Summary ---
Author Organization [facility] Address [address] [place] [address] Care Team Providers Care Machine Operator Name Role Phone Mercedes Solis MD Primary Care Provider Encounter Details Date Type Department Care Team (Latest Contact Info) Description 03/21/2007 Outpatient Historical [facility] General Surgery [address] [address] [address] [place] [phone] Jose Mayorga DO NO ADDRESS ON FILE Follow-Up Examination, Following Unspecified Surgery (Primary Dx) Social History Tobacco Use Types Packs/Day Years Used Date Smoking Tobacco: Never Assessed Sex and Gender Information Value Date Recorded Sex Assigned at Not on file Legal Sex Male 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
--- OUTSIDE RECORDS SUMMARY | 2025-07-19 13:47 | XMS_ITS | Clinical Summary ---
Author Organization [facility] Address [address] [place] [address] Phone Care Team Providers Care Coin Purse Framer Name Role Phone Mtnv, External Provider Primary Care Provider Un available Allergies Active Allergy Reactions Criticality Noted Date Comments Penicillins Anaphylaxis High 02/07/2010 Medications ascorbic acid, vitamin C, (VITAMIN C) 1,000 mg Tablet Take 1,000 mg by mouth daily. 0 Active cyanocobalamin (VITAMIN B-12) 500 mcg tablet Take 500 mcg by mouth daily. Active Calcium-Choleca lciferol, D3, (OSCAL) 250 mg-3.125 mcg (125 unit) per tablet Take by mouth daily. Active omeprazole (PriLOSEC) 40 mg Capsule, Delayed Release(E.C.) Take 1 Capsule (40 mg) by mouth daily. 90 Capsule 3 2 Active tamsulosin (FLOMAX) 0.4 mg capsuleIndicati ons:Urinary frequency Take 1 Capsule (0.4 mg) by mouth daily at bedtime. 90 Capsule 3 2 Active aspirin (ECOTRIN EC) 81 mg Tablet, Delayed Release (E.C.)Indicatio ns:History of right coronary artery stent placement Take 1 Tablet (81 mg) by mouth daily. 90 Tablet 3 2 Active nitroglycerin (NITROSTAT) 0.4 mg Tablet, Sublingual Place 1 Tablet (0.4 mg) under tongue every 5 minutes as needed for Chest Pain. 25 Tablet 3 3 Active atorvastatin (LIPITOR) 80 mg tabletIndicatio ns:Mixed hyperlipidemia, Atherosclerosis of [place] coronary artery of [place] heart without angina pectoris TAKE 1 TABLET DAILY AT BEDTIME. 90 Tablet 3 Active Additional Information Patient taking differently: 40 mg, TAKE 1 TABLET DAILY AT BEDTIME., Reported on 01/31/2025 amLODIPine (NORVASC) 5 mg tablet Take 1 Tablet (5 mg) by mouth daily. 3 Active lisinopriL (PRINIVIL) 10 mg tablet Take 1 Tablet (10 mg) by mouth daily. 30 Tablet 3 Active acetaminophen (TYLENOL) 325 mg tablet Take 2 Tablets (650 mg) by mouth every 6 hours as needed for Other (See Comment) (See admin instructions). 50 Tablet 3 Active levETIRAcetam (Keppra) 1,000 mg tabletIndicatio ns:History of seizure,Medicat ion refill Take 1 Tablet (1,000 mg) by mouth 2 times daily. 180 Tablet 3 5 Active tiotropium-olod ateroL (STIOLTO RESPIMAT) 2.5-2.5 mcg/actuation metered inhaler Inhale 2 puffs every day by inhalation route. 3 Active EPINEPHrine (EpiPen) 0.3 mg/0.3 mL Auto-Injector as directed 4 Active fluticasone propionate (FLONASE) 50 mcg/spray Arma, Suspension nasal inhaler Active loratadine (Claritin) 10 mg tablet Take 10 mg by mouth daily. 5 Active carvediloL (COREG) 6.25 mg tabletIndicatio ns:Essential hypertension,Ot her fatigue Take 1 Tablet (6.25 mg) by mouth every 12 hours. 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 Focal seizure 05/21/2023 Hypertension 05/19/2023 Acute respiratory insufficiency, postoperative 1 Altered mental status 05/17/2023 SDH (subdural hematoma) 05/15/2023 Essential hypertension 05/15/2023 CAD (coronary atherosclerotic disease) COPD (chronic obstructive pulmonary disease) Benign hypertension 03/15/2018 Mixed hyperlipidemia 03/17/2016 Atherosclerosis of [place] co ronary artery of [place] heart without angina pectoris 12/04/2015 History of right coronary artery stent placement 12/04/2015 Overview (11/21/2020): overlapping KRISTINE to RCA 11/11/15 Dizziness 11/08/2015 UNGER (dyspnea on exertion) 11/08/2015 Sweating 11/08/2015 Fatigue 11/08/2015 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 Personal history of colonic polyps 09/04/2010 Family history of colon cancer 09/04/2010 Encounters Date Type Department Care Team Description 06/26/2025 External Device Data STL ABSTRACTION Provider, Abstract 05/23/2025 10:00 AM CDT Office Visit [facility] [address] [place] [phone] Lino Franco AU.D Dizziness (Primary Dx) 04/30/2025 Telephone [facility] [address] [place] [phone] Lino Franco AU.D appt (left mess to call back to be [facility] can talk to me or katalina) 04/26/2025 Abstract [facility] [address] [place] [phone] Gf Amb, Otolaryngology Physician Sensorineural hearing loss, bilateral (Primary Dx); Dizziness from Last 3 Months Immunizations Immunization Administration Dates Next Due (PNEUMOVAX 23)(50 YRS UP) PN EUMOCOCCAL POLYSACCHARIDE (PPV23) 0.5 ML, IM 10/27/2017 (PREVNAR 13)(6 WKS UP) PNEUM OCOCCAL CONJUGATE (PCV13) 0.5 ML, IM 03/17/2016 (TDVAX)(7 YRS UP) TETANUS AN D DIPHTHERIA TOXOIDS, ADSORBED (2 LF OF TETANUS TOXOID AND 2 LF OF DIPHTHERIA TOXOID), 0.5ML (PF), IM 12/11/2005 INFLUENZA VACCINE HIGH DOSE QUADRIVALENT 65 YR UP PF IM 06/15/2022(Deferred: Other (See comments) - to be charted by administering nurse) PREVNAR (PCV13) pneumococcal 13-valent conjugate Vaccine 03/17/2016 Skin Test TB 10/18/2019 Zoster Vaccine Live SQ 03/17/2016 Family History Medical History Relation Name Comments Colon Cancer Father Cancer Maternal Uncle Lung Cancer Paternal Uncle Relation Name Status Comments Father Maternal Uncle Paternal Uncle Social History Tobacco Use Types Packs/Day Years Used Date Smoking Tobacco: Never Passive Smoke Exposure: Past Smokeless Tobacco: Never Tobacco Cessation:Counseling Given: Not Answered Alcohol Use Standard Drinks/Week Comments No 0 (1 standard drink = 0.6 oz pur e alcohol) Financial Resource Strain Answer Date R ecorded How hard is it for you to pa y for the very basics like food, housing, medical care, and heating? Patient declined 06/15/2022 Food Insecurity Answer Date Recorded In the past 12 months, have you worried that your food would run out before you had money to buy more? Patient declined 2021 In the past 12 months, did y ou run out of food and didn't have money to buy more? Patient declined 06/15/2022 Transportation Needs Answer Date Record ed In the past 12 months, has l ack of transportation kept you from medical appointments or from getting medications? Patient declined 06/15/2022 Lack of Transportation (Non-Medical) Not on file 06/15/2022 Feeling Safe Answer Date Recorded Are you in a relationship wi th someone who hurts you emotionally and/or physically? 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 Gender Identity Not on file Sexual Orientation Not on file Last Filed Vital Signs Vital Sign Reading Time Taken Comments Blood Pressure 122/82 01/31/2025 12:16 PM CDT Pulse 52 01/31/2025 12:16 PM CDT Temperature 36.1 C (96.9 F) 06/29/2023 1:27 AM CLAM SHUCKING MACHINE TENDER Respiratory Rate 16 07/31/2024 11:1 5 AM CLAM SHUCKING MACHINE TENDER Oxygen Saturation 96% 01/31/2025 12: 16 PM CDT Inhaled Oxygen Concentration - - Weight 101.1 kg (222 lb 12.8 oz) 2024 12:16 PM CDT Height 170.2 cm (5' 7 ) 01/31/2025 12:1 6 PM CDT Body Mass Index 34.9 01/31/2025 12:16 PM CDT Plan of Treatment Upcoming Encounters Date Type Department Care Team (Late st Contact Info) Description 07/31/2025 11:30 AM CLAM SHUCKING MACHINE TENDER Office Visit [facility] Neurology - [address] [place] [address] Harish Mcdonnell NP [address] [place] [phone] 02/05/2026 2:00 PM CDT Office Visit [facility] [address] [facility] [address] [place] [phone] Catracho Gutiérrez MD [address] [facility] [address] [place] [phone] Arleth Morris, SHERRIE [address] [facility] [address] [place] [phone] Health Maintenance Due Date Last Done Comments COLORECTAL SCREENING 1966 ZOSTER VACCINE (2 of 3) 05/12/2016 03/17/2016 RSV VACCINE (60+ or ) (1 - 1-dose 75+ series) 2023 Preventative Visit- Commercial 07/26/2024 06/15/2022 INFLUENZA VACCINE (#1) 2025 08/29/2020, 2019 DTAP/TDAP/TD VACCINES (2 - T d or Tdap) 02/22/2033 02/22/2023, 12/11/2005 PNEUMOCOCCAL VACCINE 50+ YEARS Completed 0 10/27/2017, 03/17/2016, 03/17/2016 Medical Devices Implanted Type Area Permastone Mechanic Device Identifier Shelf Expiration Date Model / Serial / Lot Lens Io Bi-Aspheric Softechd+21.0d - [id number] Implanted:Qty: 1 on 03/12/2021 by Herbert Mandel MD at [facility] Eye Right: Eye [employer] 08/05/2025 SOFTECHD +21.0D / [id number] / Lens Io Bi-Aspheric Softechd+20.25 d - [id number] Implanted:Qty: 1 on 05/14/2021 by Herbert Mandel MD at [facility] Eye Left: Eye [employer] 02/11/2025 SOFTECHD +20.25D / [id number] / Hemostatic Surgifoam Sz100 1973 - [id number] Implanted:Qty: 1 on 05/17/2023 by Wellington Serrano MD at [facility] Hemostatic Left: Brain J&J- [employer] [id number] 01/25/20271973 / / [id number] Hemostatic Surgifoam 1gm 1977 - [id number] Implanted:Qty: 1 on 05/17/2023 by Wellington Serrano MD at [facility] Hemostatic Left: Brain J&J- [employer] [id number] 09/02/20241977 / / [id number] Agent Hemostat Surgicel 2x3in - [id number] Implanted:Qty: 1 on 05/17/2023 by Wellington Serrano MD at [facility] Hemostatic Left: Brain J&J- [employer] 11/23/20271952S / / [id number] Plate Matrxneuro Bur Hl Cvr 04.503.023 - [id number] Implanted:Qty: 1 on 05/17/2023 by Wellington Serrano MD at [facility] Plate Left: Brain J&J- DEPUY SYNTHES 04.503.0 23 / / Plate Matrxneuro Bur Hl Cvr 503.024 - [id number] Implanted:Qty: 1 on 05/17/2023 by Wellington Serrano MD at [facility] Plate Left: Brain J&J- DEPUY SYNTHES 04.503.0 24 / / Plate Matrxneuro Straight 503.062 - [id number] Implanted:Qty: 1 on 05/17/2023 by Wellington Serrano MD at [facility] Plate Left: Brain J&J- DEPUY SYNTHES 04.503.0 62 / / Plate Matrxneuro Straight 503.062 - [id number] Implanted:Qty: 1 on 05/17/2023 by Wellington Serrano MD at [facility] Plate Left: Brain J&J- DEPUY SYNTHES 04.503.0 62 / / Screw Matrixneuro Sd .104.01 - [id number] Implanted:Qty: 1 on 05/17/2023 by Wellington Serrano MD at [facility] Screw Left: Brain J&J- DEPUY SYNTHES 04.503.1 04.01 / / Screw Matrixneuro Sd 503.104.01 - [id number] Implanted:Qty: 1 on 05/17/2023 by Wellington Serrano MD at [facility] Screw Left: Brain J&J- DEPUY SYNTHES 04.503.1 04.01 / / Screw Matrixneuro Sd 503.104.01 - [id number] Implanted:Qty: 1 on 05/17/2023 by Wellington Serrano MD at [facility] Screw Left: Brain J&J- DEPUY SYNTHES 04.503.1 04.01 / / Screw Matrixneuro Sd 503.104.01 - [id number] Implanted:Qty: 1 on 05/17/2023 by Wellington Serrano MD at [facility] Screw Left: Brain J&J- DEPUY SYNTHES 04.503.1 04.01 / / Screw Matrixneuro Sd 04.503.104.01 - [id number] Implanted:Qty: 1 on 05/17/2023 by Wellington Serrano MD at [facility] Screw Left: Brain J&J- DEPUY SYNTHES 04.503.1 04.01 / / Screw Matrixneuro Sd 04.503.104.01 - [id number] Implanted:Qty: 1 on 05/17/2023 by Wellington Serrano MD at [facility] Screw Left: Brain J&J- DEPUY SYNTHES 04.503.1 04.01 / / Screw Matrixneuro Sd 04.503.104.01 - [id number] Implanted:Qty: 1 on 05/17/2023 by Wellington Serrano MD at [facility] Screw Left: Brain J&J- DEPUY SYNTHES 04.503.1 04.01 / / Screw Matrixneuro Sd 04.503.104.01 - [id number] Implanted:Qty: 1 on 05/17/2023 by Wellington Serrano MD at [facility] Screw Left: Brain J&J- DEPUY SYNTHES 04.503.1 04.01 / / Screw Matrixneuro Sd 04.503.104.01 - [id number] Implanted:Qty: 1 on 05/17/2023 by Wellington Serrano MD at [facility] Screw Left: Brain J&J- DEPUY SYNTHES 04.503.1 04.01 / / Screw Matrixneuro Sd 04.503.104.01 - [id number] Implanted:Qty: 1 on 05/17/2023 by Wellington Serrano MD at [facility] Screw Left: Brain J&J- DEPUY SYNTHES 04.503.1 04.01 / / Screw Matrixneuro Sd 04.503.104.01 - [id number] Implanted:Qty: 1 on 05/17/2023 by Wellington Serrano MD at [facility] Screw Left: Brain J&J- DEPUY SYNTHES 04.503.1 04.01 / / Screw Matrixneuro Sd 04.503.104.01 - [id number] Implanted:Qty: 1 on 05/17/2023 by Wellington Serrano MD at [facility] Screw Left: Brain J&J- DEPUY SYNTHES 04.503.1 10.24 / / Xience 3.5x12-11/11/19 16 Implanted:10/24 (Quantity not on file) Stent Xience 3.5x38-11/11/19 16 Implanted:10/24 (Quantity not on file) Stent Xience 3.5x8- 6 Implanted:10/24 (Quantity not on file) Stent Procedures Procedure Name Priority Date/Time Associated Diagnosis Comments CT VSTBLR FUNCJ NYSTAG FOVL&PERPH STIMJ OSCIL TRK Routine 05/23/2025 12:[address] CALORIC VESTIBULAR TEST W/REC BI BITHERMAL Routine 05/23/2025 12:19 PM CDT Dizziness from Last 3 Months Results * CT CALORIC VESTIBULAR TEST W/REC BI BITHERMAL, CT VSTBLR FUNCJ NYSTAG FOVL&PERPH STIMJ OSCIL TRK (05/23/2025 12:19 PM CDT) Narrative [place] Mary Levi - 05/23/2025 12:19 PM CDT Lino Franco AU.D 05/23/2025 12:19 PM SUBJECTIVE: Farshad Parra is a 74 y.o. male seen today for videonystagmography testing due to dizziness and imbalance for the past 6 months. Mr. Parra did have a stroke 1.5 years ago. The [place]-Hallpike test was negative for BPPV when tested at [facility] on 04/09/2025. He has bilateral buzzing tinnitus R>L. 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 He has intermittent right ear fullness. OBJECTIVE: Mr. Parra was referred by GARDENIA De Los Santos and Bakari Vaz MD at [facility]. ASSESSMENT: The VNG showed no gaze, spontaneous or positional nystagmus. The Y[place]itza-Hallpike test for benign paroxysmal positional vertigo (BPPV) was negative for both sides. The visual pursuit test was normal and symmetrical. Saccadic eye velocity and accuracy were abnormal. The right eye-movement recordings in the optokinetic test showed low gain for right and left moving targets. There was right beating post head shake nystagmus at 7 degrees/s consistent with a left ear weakness. The patient demonstrated a caloric Reduced Vestibular Response (RVR) of 25% in the left ear. This value exceeds the 20% normal limit for RVR. From the 4 irrigations, right beating nystagmus was 5% stronger than the left beating nystagmus. This value for Directional Preponderance is within normal limits. PLAN: It was recommended that Mr. Parra follow-up with Dr. Vaz (ENT provider at [facility]). Procedure Note Box, AU. LinoD - 05/23/2025 12:19 PM CDT SUBJECTIVE: Farshad Parra is a 74 y.o. male seen today forvideonystagmography testing due to dizziness and imbalance for the past 6months. Mr. Parra did have a stroke 1.5 years ago. The Yaritza-Hallpike testwas negative for BPPV when tested at [facility] on 04/09/2025.He has bilateral buzzing tinnitus R>L. He does have mild to moderate SNHLhearing loss and he wears hearing aids. He has intermittent right earfullness. OBJECTIVE: Mr. Parra was referred by GARDENIA De Los Santos and Bakari Nolasco MD at [facility]. ASSESSMENT: The VNG showed no gaze, spontaneous or positional nystagmus.The [place]-Hallpike test for benign paroxysmal positional vertigo (BPPV) wasnegative for both sides. The visual pursuit test was normal andsymmetrical. Saccadic eye velocity and accuracy were abnormal. The right eye-movement recordings in the optokinetic test showed low gainfor right and left moving targets. There was right beating post head shake nystagmus at 7 degrees/sconsistent with a left ear weakness. The patient demonstrated a caloric Reduced Vestibular Response (RVR) of25% in the left ear. This value exceeds the 20% normal limit for RVR.From the 4 irrigations, right beating nystagmus was 5% stronger than theleft beating nystagmus. This value for Directional Preponderance iswithin normal limits. PLAN: It was recommended that Mr. Parra follow-up with Dr. Vaz (ENTprovider at [facility]). Lino Salvador AU.D AUDIOLOGY SERVICES ORDERABLES Ed ited Result - Final from Last 3 Months Insurance [employer] PPO MCR AETNA CHOICE POS II Advance Directives For more information, please contact: [phone] * Full Code (Latest Code Status on File) Date Activated Date Inactivated Comments 05/25/2023 6:09 PM 05/29/2023 12:57 PM * NO CPR (In Event of Cardiopulmonary Arrest) Date Activated Date Inactivated Comments 05/20/2023 1:40 PM 05/25/2023 5:35 PM Question Answer Comments Mechanical Ventilation (for respiratory distress) - Invasive (i.e. intubation): No Mechanical Ventilation (for respiratory distress) - Non-Invasive (i.e. BiPAP, CPAP): Yes * Full Code Date Activated Date Inactivated Comments 05/15/2023 6:53 PM 05/20/2023 1:40 PM * Full Code Date Activated Date Inactivated Comments 05/14/2021 1:24 PM 05/14/2021 4:59 PM * Full Code Date Activated Date Inactivated Comments 03/12/2021 12:57 PM 03/12/2021 3:52 PM Care Teams Coin Purse Framer Relationship Specialty Start Date End Date Mtnv, External Provider [address] [place] [address] PCP - General Family Practice 04/30/23
--- OUTSIDE RECORDS SUMMARY | 2025-07-19 13:47 | XMS_ITS | Encounter Summary ---
Author Organization [facility] Address [address] [place] [address] Care Team Providers Care Graves Registration Specialist Name Role Phone Mercedes Solis MD Primary Care Provider Encounter Details Date Type Department Care Team (Latest Contact Info) Description 03/16/2007 Outpatient Historical [facility] General Surgery [address] [address] [address] [place] [phone] Jose Mayorga DO NO ADDRESS ON FILE Follow-Up Examination, Following Unspecified Surgery (Primary Dx) Social History Tobacco Use Types Packs/Day Years Used Date Smoking Tobacco: Never Assessed Sex and Gender Information Value Date Recorded Sex Assigned at Not on file 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
--- OUTSIDE RECORDS SUMMARY | 2025-07-19 13:47 | XMS_ITS | Encounter Summary ---
Author Organization [facility] Address [address] [place] [address] Care Team Providers Care Digital Computer Operator Name Role Phone Mercedes Solis MD Primary Care Provider Encounter Details Date Type Department Care Team (Latest Contact Info) Description 10/12/2005 Outpatient Historical [facility] Medicine- [address] [phone] Nagi Rajan, [place] NO ADDRESS ON FILE Other Voice Disturbance (Primary Dx); Other Testicular Hypofunction; Lipoma of Unspecified Site Social History Tobacco Use Types Packs/Day Years Used Date Smoking Tobacco: Never Assessed Sex and Gender Information Value Date Recorded Sex Assigned at Not on file 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
--- NOTE | 2025-07-19 13:54 | ECG_ITS ---
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
--- NOTE | 2025-07-19 13:54 | CTR_ITS ---
PROCEDURE INFORMATION: Exam: CT Head Without Contrast Exam date and time: 07/19/2025 1:57 PM Age: 74 years old Clinical indication: Stroke-like symptoms; Altered mental status/memory loss; Additional info: Stroke alert, dizziness, visual changes, HX of CVA TECHNIQUE: Imaging protocol: Computed tomography of the head without contrast. Radiation optimization: All CT scans at this facility use at least one of these dose optimization techniques: automated exposure control; mA and/or kV adjustment per patient size (includes targeted exams where dose is matched to clinical indication); or iterative reconstruction. Other technique: STROKE PROTOCOL was implemented. COMPARISON: CT head wo con* [id number] 07/08/2023 7:17 PM RADIATION DOSE METRICS: Total DLP (mGy-cm): 1095.18 FINDINGS: Brain: No intracranial hemorrhage. There is global parenchymal volume loss. Periventricular white matter hypoattenuation is nonspecific but most likely due to small vessel disease. No evidence of acute territorial infarct or cerebral edema. No mass effect or midline shift. Cerebral ventricles: Prominent ventricles likely secondary to volume loss. Paranasal sinuses: Air-fluid level left maxillary antrum. Mild diffuse nasal sinus mucosal thickening. Mastoid air cells: Visualized mastoid air cells are well aerated. Bones: Previous left-sided craniotomy. Soft tissues: Unremarkable. CT/CT head thrombolytic [id number] IMPRESSION: 1. No acute intracranial findings. 2. Air-fluid level left maxillary antrum. ASSESSMENT: ASPECTS ([place] Stroke Program Early CT Score) is 10.
--- NOTE | 2025-07-19 13:54 | XRR_ITS ---
PROCEDURE INFORMATION: Exam: XR Chest Exam date and time: 07/19/2025 1:57 PM Age: 74 years old Clinical indication: Other: Dizziness TECHNIQUE: Imaging protocol: Radiologic exam of the chest. Views: 1 view. COMPARISON: CR XR chest 1V portable [id number] 07/08/2023 7:04 PM FINDINGS: Lungs: Unremarkable. No consolidation. Pleural spaces: Unremarkable. No pleural effusion. No pneumothorax. Heart/Mediastinum: Unremarkable. No cardiomegaly. Bones/joints: Unremarkable. XR/XR chest 1V portable [id number] IMPRESSION: No acute findings.
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
--- NOTE | 2025-07-19 14:12 | CTR_ITS ---
PROCEDURE INFORMATION: Exam: CTA Head With Contrast, Arteriography Exam date and time: 07/19/2025 2:16 PM Age: 74 years old Clinical indication: Memory loss; Type not specified; Prior surgery; Surgery date: 6+ months; Surgery type: Brain; HX of stroke, follow up to CT head. Dizzy, visual changes; Additional info: Dizzy, visual changes, HX of stroke TECHNIQUE: Imaging protocol: Computed tomographic angiography of the head with contrast. Exam focused on the arteries. 3D rendering (Not supervised by radiologist): MIP and/or 3D reconstructed images were created by the technologist. Radiation optimization: All CT scans at this facility use at least one of these dose optimization techniques: automated exposure control; mA and/or kV adjustment per patient size (includes targeted exams where dose is matched to clinical indication); or iterative reconstruction. Contrast material: OMNIPAQUE 350; Contrast volume: 100 ml; Contrast route: INTRAVENOUS (IV); COMPARISON: CT head thrombolytic [id number] 07/19/2025 1:57 PM RADIATION DOSE METRICS: Total DLP (mGy-cm): 558.23 FINDINGS: ANTERIOR CIRCULATION: Right internal carotid artery: Intracranial segment is patent with no significant stenosis. No aneurysm. Right middle cerebral artery: No occlusion or significant stenosis. No aneurysm. Right anterior cerebral artery: No occlusion or significant stenosis. No aneurysm. Left internal carotid artery: Intracranial segment is patent with no significant stenosis. No aneurysm. Left middle cerebral artery: No occlusion or significant stenosis. No aneurysm. Left anterior cerebral artery: No occlusion or significant stenosis. No aneurysm. POSTERIOR CIRCULATION: Right vertebral artery: No occlusion or significant stenosis. No aneurysm. Left vertebral artery: No occlusion or significant stenosis. No aneurysm. Basilar artery: No occlusion or significant stenosis. No aneurysm. Right posterior cerebral artery: No occlusion or significant stenosis. No aneurysm. Left posterior cerebral artery: No occlusion or significant stenosis. No aneurysm. Brain: Reported separately. PROCEDURE INFORMATION: Exam: CTA Neck With Contrast Exam date and time: 07/19/2025 2:16 PM Age: 74 years old Clinical indication: Memory loss; Type not specified; Prior surgery; Surgery date: 6+ months; Surgery type: Brain; HX of stroke, follow up to CT head. Dizzy, visual changes; Additional info: Dizzy, visual changes, HX of stroke TECHNIQUE: Imaging protocol: Computed tomographic angiography of the neck with contrast. Exam focused on the cervical segments of the vasculature. 3D rendering (Not supervised by radiologist): MIP and/or 3D reconstructed images were created by the technologist. Radiation optimization: All CT scans at this facility use at least one of these dose optimization techniques: automated exposure control; mA and/or kV adjustment per patient size (includes targeted exams where dose is matched to clinical indication); or iterative reconstruction. Contrast material: OMNIPAQUE 350; Contrast volume: 100 ml; Contrast route: INTRAVENOUS (IV); COMPARISON: CT head thrombolytic [id number] 07/19/2025 1:57 PM RADIATION DOSE METRICS: Total DLP (mGy-cm): 558.23 FINDINGS: Right common carotid artery: No stenosis. No dissection or occlusion. Right internal carotid artery: Extensively calcified plaque throughout the proximal right internal carotid artery. Stenosis is approximately 60-70%. There is also a small focal outpouching suggesting ulceration (series 10, image 143; series 5, image 151). Right external carotid artery: No occlusion or stenosis of the origin. Left common carotid artery: No stenosis. No dissection or occlusion. Left internal carotid artery: Extensively calcified plaque proximal left ICA. Stenosis is approximately 50%. Left external carotid artery: No occlusion or stenosis of the origin. Right vertebral artery: No stenosis. No dissection or occlusion. Left vertebral artery: No stenosis. No dissection or occlusion. Soft tissues: Normal. No significant soft tissue swelling. Bones/joints: No acute fracture. CT/CT angio headneck* [id number] IMPRESSION: No large vessel stenosis or occlusion. IMPRESSION: 1. Extensively calcified plaque throughout the proximal right internal carotid artery. Stenosis is approximately 60-70%. There is also a small focal outpouching suggesting ulceration (series 10, image 143; series 5, image 151). 2. Extensively calcified plaque proximal left ICA. Stenosis is approximately 50%. REFERENCES: NASCET CRITERIA. The degree of stenosis in the cervical segment of the internal carotid artery is based on NASCET criteria. Normal is no stenosis. Mild is less than 50% stenosis. Moderate is 50-69% stenosis. Severe is 70% to 99% stenosis. Total occlusion is no detectable patent lumen.
[2025-07-19] MEDS: iohexol 350 mg/mL 500 mL Btl (per mL) IV (14:26)
[2025-07-19 14:39] LABS: Nucleated Red Blood Cells % 0 %
[2025-07-19 14:42] LABS: Hematocrit 39.3 % (37-53); Hemoglobin 13.00 g/dL (11.27-16.99); Mean Corpuscular HGB Conc 33.1 g/dL (30-55); Mean Corpuscular Hemoglobin 30.4 pg (27-33); Mean Corpuscular Volume 91.8 fl (82-101); Platelet Count 203 10^3/cmm (157-399); Red Blood Count 4.28 10^6/uL (3.85-5.65); White Blood Count 7.16 10^3/uL (3.29-11.43)
[2025-07-19 14:52] LABS: INR 1.02 (0.8-1.2); Prothrombin Time 14.10 SECONDS (12.1-14.9)
[2025-07-19 14:53] LABS: Partial Thromboplastin Time 29.0 SECONDS (23.9-36.7)
--- NOTE | 2025-07-19 14:54 | ECG_ITS ---
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
--- NOTE | 2025-07-19 15:00 | PC.NURSE ---
assessed patients swallowing ability by sips of water. patient has patent airway and no coughing or choking noted. proceeded with aspirin administration.
[2025-07-19 15:02] LABS: Troponin(5th) Baseline 11 ng/L (0-15)
[2025-07-19 15:11] LABS: Alanine Aminotransferase 17 U/L (0-41); Albumin Level 3.7 g/dL (3.5-5.2); Alkaline Phosphatase 78 U/L (40-130); Anion Gap 13.7 (5-19); Aspartate Amino Transferase 20 U/L (0-40); Blood Urea Nitrogen 12 mg/dL (8-23); Calcium 8.1 mg/dL (8.5-10.5); Carbon Dioxide 26 mmol/L (22-29); Chloride 104 mmol/L (98-107); Globulin 1.8 g/dL (1.3-4.6); Glucose 98 mg/dL (65-115); Osmolality Calculated 292 mOsm/kg (285-295); Sodium 141 mmol/L (136-145); Total Protein 5.5 g/dL (6.6-8.7)
[2025-07-19 15:13] LABS: Potassium 2.7 mmol/L (3.5-5.1)
[2025-07-19 15:34] LABS: Glucose Urine UA Negative (Normal); Nitrate Urine Negative (Negative)
[2025-07-19 15:37] LABS: Add Urine Microscopic? YES
[2025-07-19 15:37] LABS: Magnesium 1.7 mg/dL (1.7-2.3)
[2025-07-19 15:41] LABS: Specific Gravity, Urine 1.048 (1.005-1.030)
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
--- NOTE | 2025-07-19 19:12 | PC.NURSE ---
bedside report given to chaim mar RN.
[2025-07-19 20:12] LABS: Troponin 5 6HR 10.75 ng/L (0-15)
[2025-07-19 20:13] LABS: Troponin 5 6HR Delta -0.25 ng/L (0-12)
[2025-07-19 20:33] LABS: Magnesium 1.8 mg/dL (1.7-2.3)
[2025-07-19] MEDS: magnesium sulfate premix 4 GM/100 ML PREMIX IV (21:06)
[2025-07-19] MEDS: potassium chloride premix 100 ML 25 MEQ IV (21:51)
--- NOTE | 2025-07-19 22:41 | ECG_ITS ---
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
[2025-07-20 04:00] VITALS: BP 155/80; PULSE 69; RESP 18; TEMP 36.6; O2SAT 91
[2025-07-20 05:19] LABS: Hematocrit 38.0 % (37-53); Hemoglobin 12.80 g/dL (11.27-16.99); Mean Corpuscular HGB Conc 33.7 g/dL (30-55); Mean Corpuscular Hemoglobin 30.8 pg (27-33); Mean Corpuscular Volume 91.6 fl (82-101); Nucleated Red Blood Cells % 0 %; Platelet Count 210 10^3/cmm (157-399); Red Blood Count 4.15 10^6/uL (3.85-5.65); White Blood Count 5.59 10^3/uL (3.29-11.43)
[2025-07-20 05:39] LABS: Alanine Aminotransferase 16 U/L (0-41); Albumin Level 3.4 g/dL (3.5-5.2); Alkaline Phosphatase 77 U/L (40-130); Anion Gap 13.1 (5-19); Aspartate Amino Transferase 18 U/L (0-40); Blood Urea Nitrogen 9 mg/dL (8-23); Calcium 8.0 mg/dL (8.5-10.5); Carbon Dioxide 27 mmol/L (22-29); Chloride 105 mmol/L (98-107); Globulin 2.3 g/dL (1.3-4.6); Glucose 107 mg/dL (65-115); Magnesium 2.2 mg/dL (1.7-2.3); Osmolality Calculated 293 mOsm/kg (285-295); Potassium 3.1 mmol/L (3.5-5.1); Sodium 142 mmol/L (136-145); Total Protein 5.7 g/dL (6.6-8.7)
[2025-07-20 07:38] VITALS: BP 133/89; PULSE 63; RESP 18; TEMP 36.6; O2SAT 91
[2025-07-20 08:53] VITALS: PULSE 79; RESP 18; O2SAT 92
[2025-07-20 11:24] VITALS: BP 158/78; PULSE 69; RESP 18; TEMP 36.6; O2SAT 92
--- NOTE | 2025-07-20 12:37 | MR_ITS ---
WS: [id number] MRI HEAD WITH CONTRAST TECHNIQUE: Sagittal T1, T2 axial, T2 axial FLAIR, axial susceptibility weighted imaging, axial diffusion weighted images, and coronal T2 images were obtained. Pre and post-T1 axial and post T1 coronal images. ADC and FSPGR images. CLINICAL INFORMATION: Transient cerebral ischemia FINDINGS: No evidence of restricted diffusion to suggest acute ischemia. Ventricular system and basilar cisterns are patent. Mild to moderate small vessel changes. Moderate parenchymal volume loss. Normal posterior fossa. Normal vascular flow voids at the skull base. Mild mucosal thickening paranasal sinuses. LEFT greater than RIGHT maxillary sinusitis. Normal posterior nasopharynx. Mastoid air cells are well aerated. Normal optic chiasm and pituitary infundibulum. Moderate symmetric atrophy temporal lobes and hippocampal formations. No abnormal gadolinium enhancement. Prior postoperative changes LEFT frontal parietal craniotomy. Normal dural venous sinuses. MR/MR head wo/w con [id number] IMPRESSION: 1. No evidence of restricted diffusion to suggest acute ischemia. 2. Mild to moderate small vessel changes. Moderate parenchymal volume loss. 3. No hemosiderin on susceptibility-weighted images. 4. Prior postoperative changes LEFT frontal parietal craniotomy. 5. No abnormal gadolinium enhancement. 6. No other acute findings.
[2025-07-20] MEDS: gadobenate dimeglumine 20 mL vial IV (13:37)
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
[2025-07-20 14:57] VITALS: PULSE 70; RESP 18; O2SAT 94
[2025-07-20 15:09] VITALS: BP 158/78; PULSE 70; RESP 18; TEMP 36.6; O2SAT 94
== END 2025-07-20 16:20 | disposition home or self-care (01) ==
LOC: ER 15:37 → MEDSURG 17:49
PROVIDERS: Admitting Provider Internal Medicine; Emergency Provider Physician Assistant; PCP Nurse Practitioner Family; Visit Provider Internal Medicine
DX: E87.6 Hypokalemia (principal); I10 Essential (primary) hypertension; K21.9 Gastro-esophageal reflux disease without esophagitis; Z86.73 Personal history of transient ischemic attack (TIA), and cerebral infarction without residual deficits
CPT/HCPCS: 36415; 36416; 70450; 70496; 70498; 70553; 71045; 80053; 81001; 82962; 83735; 84100; 84484; 85025; 85610; 85730; 93005; 94640; A9577; G0378; J3475; J3480; J7030; J9999